=== PATIENT | female | born 1970 | race Two or more races ===

== ENCOUNTER → 2016-11-06 | Outpatient (CLI) | payer MEDICARE, OTHER ==
[~2016-11-06] MED LIST: ACID CONTROLLER20 MG GT; BISACODYL10 MG PR; DIASTAT2.5 MG PR; DONEPEZIL HCL10 MG GT; GABAPENTIN300 M2 GT; GENAPAP325 MG GT; LAMICTAL GT; MELATIN3 MG GT; MIRALAX17 GM GT; SYNTHROID75 MCG GT; XARELTO20 MG GT
--- NOTE | ~2016-11-06 | CT71 ---
[facility] A Service of [facility] RADIOLOGY TEXT RESULTS PATIENT: KIRSTEN HICKMAN LOCATION: CCAT : 68 UNIT #: [id number] AGE: [address]: NIDHI DE LA CRUZ APRN SEX: F ORDER DR: [id number] [facility] [address] [place], [place] [address] [id number] O MR#: [id number] Acc #: [id number] NAME: KIRSTEN HICKMAN : 1970 SEX: F STUDY DATE/TIME: 11/06/2016 9:11 UNIT: [facility]AT ROOM: STUDY DESCRIPTION: CT Head Wo Contrast Attending Physician: Nidhi De La Cruz Aprn Referring Physician: Oh Shah Sr., M.D. Ordering Physician: Nidhi De La Cruz Aprn Primary Care Physician: Babita Colin M.D. MEDICAL IMAGING REPORT This report is preliminary unless electronic signature is present EXAM CT of the head, 11/06/2016. HISTORY Jerks. Myoclonic jerks versus myoclonic seizure activity. TECHNIQUE CT of the head performed from skull base through vertex without intravenous contrast. This CT exam was performed with one or more of the following radiation dose reduction techniques: automatic exposure control, adjustment of mA and/or kV according to patient size, and iterative reconstruction. COMPARISONS 06/04/2015 FINDINGS Study degraded by extensive motion artifact despite repetition. No gross brain stem abnormality is seen. The cerebellum and cerebral hemispheres show overall preservation of burns matter-white matter differentiation, without clear indication of intracranial hemorrhage or acute cortical ischemia. Areas of hemorrhage or acute cortical ischemia could be obscured on multiple images by the extensive motion artifact. There are periventricular and deep white matter tract probable sequelae of chronic microvascular ischemia unchanged from prior study. The midline structures are nondisplaced. There is no clear indication of acute basal ganglia abnormality. The ventricles, cisterns and sulci show moderate generalized enlargement, consistent with moderate generalized atrophy disproportionate to patient's staged age. The intraorbital soft tissues are unremarkable. The visualized paranasal sinuses and mastoid air cells grossly clear. No acute-appearing bony abnormality. [facility] A Service of [facility] RADIOLOGY TEXT RESULTS PATIENT: KIRSTEN HICKMAN LOCATION: [facility] : [birth year] UNIT #: [id number] AGE: [address]: NIDHI DE LA CRUZ, POWDER GUARD SEX: F ORDER DR: IMPRESSION 1. Study markedly degraded by extensive motion artifact despite repetition. No acute abnormality is clearly seen. If the patient has ongoing neurologic symptoms, consider follow-up imaging, preferably with MRI, if the patient is a candidate. If clinically postprocessing for the patient and if this is a new onset of potential seizures in the patient, consider seizure protocol MRI. 2. Moderate generalized atrophy, disproportionate to patient's stated age. 3. No fracture. 4. Periventricular and deep white matter tract probable sequelae of chronic microvascular ischemia. Dictated by... Harley Presley M.D. THIS IS AN ELECTRONICALLY VERIFIED REPORT Harley Presley M.D. at 11/06/2016 8:00 PM SUDHAKAR/viv TD: 11/06/2016 17:30 JOB #: [id number] MEDICAL IMAGING REPORT Page 1 of 1 COPY
== END | disposition home or self-care (01) ==
LOC: CCAT 08:47
DX: G25.3 Myoclonus (principal); G31.9 Degenerative disease of nervous system, unspecified
CPT/HCPCS: 70450

== ENCOUNTER 2017-03-10 16:19 | Inpatient (IN) | payer MEDICARE, OTHER ==
[~2017-03-10] VITALS: Ht 157.5 cm; Wt 44.5 kg
--- NOTE | ~2017-03-10 | CR72 ---
[facility] A Service of [facility] RADIOLOGY TEXT RESULTS PATIENT: KIRSTEN HICKMAN LOCATION: [address] : [birth year] UNIT #: [id number] AGE: [address]: Zakiya Aguilar MD SEX: F ORDER DR: [id number] [facility] [address] [place], [place] [address] [id number] I MR#: [id number] Acc #: [id number] NAME: KIRSTEN HICKMAN : 1970 SEX: F STUDY DATE/TIME: 03/18/2017 4:52 UNIT: [facility] ROOM: [facility] STUDY DESCRIPTION: CR Chest Single View Portable Attending Physician: Zakiya Aguilar M.D. Ordering Physician: Catalino Woodard M.D. Primary Care Physician: Radha Emanuel Aprn MEDICAL IMAGING REPORT This report is preliminary unless electronic signature is present EXAM AP portable chest 03/18/2017 HISTORY Shortness of breath, symptoms began 03/11/2017. Left lower lobe pneumonia. Down syndrome. Mitral regurgitation. History of seizures. COMPARISON AP portable chest 03/17/2017. FINDINGS Diffuse interstitial and alveolar disease changes throughout both lungs do not appear significantly changed. ET tube tip projects approximately 1.2 cm above the arpita. Right arm approach PICC tip extends to the upper right atrial level. No visible pneumothorax or pleural effusion. IMPRESSION 1. Diffuse interstitial and alveolar disease changes in both lungs without significant change. Correlate clinically for pneumonia. 2. Supporting lines and tubes appear stable. Dictated by... Natalie Beavers M.D. THIS IS AN ELECTRONICALLY VERIFIED REPORT Natalie Beavers M.D. at 03/18/2017 9:49 PM [facility]/abad TD: 03/18/2017 06:31 JOB #: [id number] MEDICAL IMAGING REPORT [facility] A Service of [facility] RADIOLOGY TEXT RESULTS PATIENT: KIRSTEN HICKMAN [address] : [birth year] UNIT #: [id number] AGE: [address]: Zakiya Aguilar MD SEX: F ORDER DR: Page 1 of 1 COPY
--- NOTE | ~2017-03-10 | CR72 ---
[facility] A Service of [facility] RADIOLOGY TEXT RESULTS PATIENT: KIRSTEN HICKMAN LOCATION: [address]21 : [birth year] UNIT #: [id number] AGE: [address]: Zakiya Aguilar MD SEX: F ORDER DR: [id number] [facility] [address] [place], [place] [address] [id number] I MR#: [id number] Acc #: [id number] NAME: KIRSTEN HICKMAN : 1970 SEX: F STUDY DATE/TIME: 03/14/2017 9:24 UNIT: [facility] ROOM: [facility] STUDY DESCRIPTION: CR Chest Single View Portable Attending Physician: Zakiya Aguilar M.D. Ordering Physician: Zakiya Aguilar M.D. Primary Care Physician: Radha Emanuel Aprn MEDICAL IMAGING REPORT This report is preliminary unless electronic signature is present EXAM Portable chest INDICATIONS Endotracheal intubation. Comparison with earlier today. FINDINGS There has been interval placement of an endotracheal tube. The tip is in the right mainstem bronchus and needs to be retracted about 5 cm. There is increased atelectasis in the left lung base. There are diffuse bilateral pulmonary infiltrates, which are overall not significantly changed. Heart size stable. IMPRESSION 1. The endotracheal tube tip lies within the right mainstem bronchus and needs to be retracted about 5 cm. 2. Increased atelectasis within the left base. No other change. Findings were discussed with the patient's nurse at the time of dictation. Dictated by... Junior Ray M.D. THIS IS AN ELECTRONICALLY VERIFIED REPORT Junior Ray M.D. at 03/15/2017 7:27 AM ARS/parveen TD: 03/14/2017 20:29 JOB #: [id number] MEDICAL IMAGING REPORT Page 1 of 1 COPY
--- NOTE | ~2017-03-10 | CR72 ---
[facility] A Service [facility] RADIOLOGY TEXT RESULTS PATIENT: KIRSTEN HICKMAN LOCATION: [address] : [birth year] UNIT #: [id number] AGE: [address]: Zakiya Aguilar MD SEX: F ORDER DR: [id number] [address] [place], [place] [address] [id number] I MR#: [id number] Acc #: [id number] NAME: KIRSTEN HICKMAN : 1970 SEX: F STUDY DATE/TIME: 03/14/2017 8:18 UNIT: [facility] ROOM: [facility] STUDY DESCRIPTION: CR Chest Single View Portable Attending Physician: Zakiya Aguilar M.D. Ordering Physician: Elvis Wright M.D. Primary Care Physician: Radha Emanuel Aprn MEDICAL IMAGING REPORT This report is preliminary unless electronic signature is present EXAM Portable chest INDICATIONS Shortness of air. Cardiac arrest today. PROCEDURE Frontal view chest. COMPARISON 03/12/2017 FINDINGS Heart size is not significantly changed. Persistent diffuse alveolar opacity in both lungs slightly progressed. Probable small layering right effusion, no visible pneumothorax. IMPRESSION Interval progression of diffuse alveolar opacities in both lungs since 03/12/2017. Probably edema but diffuse pneumonia could have a similar appearance. Dictated by... Ruben Hughes M.D. THIS IS AN ELECTRONICALLY VERIFIED REPORT Ruben Hughes M.D. at 03/16/2017 5:01 PM EED/psc TD: 03/14/2017 20:04 JOB #: [id number] [facility] A Service [facility] RADIOLOGY TEXT RESULTS PATIENT: KIRSTEN HICKMAN LOCATION: [address] : [birth year] UNIT #: [id number] AGE: [address]: Zakiya Aguilar MD SEX: F ORDER DR: MEDICAL IMAGING REPORT Page 1 of 1 COPY
--- NOTE | ~2017-03-10 | CR72 ---
[facility] A Service of [facility] RADIOLOGY TEXT RESULTS PATIENT: KIRSTEN HICKMAN LOCATION: [address]21 : [birth year] UNIT #: [id number] AGE: [address]: Zakiya Aguilar MD SEX: F ORDER DR: [id number] [facility] [address] [place], [place] [address] [id number] I MR#: [id number] Acc #: [id number] NAME: KIRSTEN HICKMAN : 1970 SEX: F STUDY DATE/TIME: 03/20/2017 4:34 UNIT: [facility] ROOM: [facility] STUDY DESCRIPTION: CR Chest Single View Portable Attending Physician: Zakiya Aguilar M.D. Ordering Physician: Catalino Woodard M.D. Primary Care Physician: Radha Emanuel Aprn MEDICAL IMAGING REPORT This report is preliminary unless electronic signature is present EXAM AP portable chest 03/20/2017 HISTORY Shortness of air. Patient on ventilator. Follow up cardiopulmonary status. TECHNIQUE AP portable chest x-ray. FINDINGS The exam shows no significant change since yesterday. Mild diffuse patchy infiltrate throughout both lungs. Heart size normal. Endotracheal tube tip 1.1 cm above the arpita. Right arm PICC in good position. No visible pneumothorax or pleural effusion. IMPRESSION Stable portable chest radiograph, unchanged since yesterday. Dictated by... Bassam Diane M.D. THIS IS AN ELECTRONICALLY VERIFIED REPORT Bsasam Diane M.D. at 03/20/2017 9:59 PM STEVEN/abad TD: 03/20/2017 07:48 JOB #: [id number] MEDICAL IMAGING REPORT Page 1 of 1 COPY
--- NOTE | ~2017-03-10 | US84 ---
[id number] [facility] [address] [place], [place] [address] [id number] I MR#: [id number] Acc #: [id number] NAME: KIRSTEN HICKMAN : 1970 SEX: F STUDY DATE/TIME: 03/16/2017 15:35 UNIT: [facility] ROOM: [facility] STUDY DESCRIPTION: US LE Veins Complete [place] Stdy Attending Physician: Zakiya Aguilar M.D. Ordering Physician: Catalino Woodard M.D. Primary Care Physician: Radha Emanuel Aprn MEDICAL IMAGING REPORT This report is preliminary unless electronic signature is present EXAM Bilateral lower extremity venous duplex 03/16/2017 HISTORY Bilateral lower extremity edema since 03/11/2017 with shortness of breath. History of previous DVT. TECHNIQUE Venous ultrasound examination of both lower extremities was performed using grayscale, spectral Doppler and color flow Doppler imaging. FINDINGS The examination is negative. There is no evidence of deep venous thrombus from the groin to the lower calf bilaterally. Visualized greater saphenous veins are also patent. IMPRESSION Negative examination. No evidence of lower extremity deep venous thrombosis. Dictated by... Ector Arce M.D. THIS IS AN ELECTRONICALLY VERIFIED REPORT Ector Arce M.D. at 03/17/2017 7:36 AM KRT/sophia TD: 03/16/2017 18:20 JOB #: [id number] MEDICAL IMAGING REPORT Page 1 of 1 COPY
--- NOTE | ~2017-03-10 | EKG ---
PATIENT: KIRSTEN HICKMAN UNIT #: [id number] Ventricular Rate: 89 BPM Atrial Rate: 89 BPM P-R Interval: 124 ms QRS Duration: 86 ms Q-T Interval: 366 ms QTC Calculation(Bezet): 445 ms P [place]: 59 degrees Calculated R [place]: 37 degrees Calculated T [place]: 27 degrees Diagnosis Line: Normal sinus rhythm with sinus arrhythmia Diagnosis Line: Normal ECG Diagnosis Line: No previous ECGs available Diagnosis Line: Confirmed by KRISTI MARTIN MD ([id number]) on Diagnosis Line: 03/11/2017 12:33:54 AM INTERPRETING MD: MARIO BAH
--- NOTE | ~2017-03-10 | CR72 ---
[facility] A Service of [facility] & [facility] RADIOLOGY TEXT RESULTS PATIENT: KIRSTEN HICKMAN LOCATION: [address] : [birth year] UNIT #: [id number] AGE: [address]: Zakiya Aguilar MD SEX: F ORDER DR: [id number] [facility] [address] [place], [place] [address] [id number] I MR#: [id number] Acc #: [id number] NAME: KIRSTEN HICKMAN : 1970 SEX: F STUDY DATE/TIME: 03/17/2017 2:34 UNIT: [facility] ROOM: [facility] STUDY DESCRIPTION: CR Chest Single View Portable Attending Physician: Zakiya Aguilar M.D. Ordering Physician: Catalino Woodard M.D. Primary Care Physician: Radha Emanuel Aprn MEDICAL IMAGING REPORT This report is preliminary unless electronic signature is present EXAM AP portable chest. DATE 03/17/2017 HISTORY 47-year-old female with left lower lobe pneumonia and shortness breath. Symptoms began 03/11/2017. History of seizures, Down syndrome, mitral regurgitation. COMPARISON AP portable chest, 03/15/2017 at 03:31. FINDINGS ET tube tip projects 1.7 cm above the arpita. The right arm-approach PICC appears to have been advanced to the right atrial level. No pneumothorax is visible. Diffuse airspace disease changes throughout both lungs are again noted, may be slightly increased in the right base since the prior. No visible pneumothorax or pleural effusion. Normal heart size. IMPRESSION 1. Diffuse bilateral lung airspace disease. Correlate clinically for pneumonia. There may be slight increased airspace disease in the right base compared to 03/15/2017. 2. The right arm-approach PICC appears to have been advanced slightly to the level of the right atrium since the prior exam. Dictated by... Natalie Beavers M.D. THIS IS AN ELECTRONICALLY VERIFIED REPORT Natalie Beavers M.D. at 03/17/2017 9:55 PM [facility] A Service of [facility] & [facility] RADIOLOGY TEXT RESULTS PATIENT: KIRSTEN HICKMAN LOCATION: [facility] CICCU3-21 : [birth year] UNIT #: [id number] AGE: [address]: Zakiya Aguilar MD SEX: F ORDER DR: Rory TD: 03/17/2017 06:12 JOB #: [id number] MEDICAL IMAGING REPORT Page 1 of 1 COPY
--- NOTE | ~2017-03-10 | CR72 ---
[facility] A Service of [facility] RADIOLOGY TEXT RESULTS PATIENT: KIRSTEN HICKMAN LOCATION: C5B 548-01 : [birth year] UNIT #: [id number] AGE: [address]: Zakiya Aguilar MD SEX: F ORDER DR: [id number] [facility] [address] [place], [place] [address] [id number] I MR#: [id number] Acc #: [id number] NAME: KIRSTEN HICKMAN : 1970 SEX: F STUDY DATE/TIME: 03/10/2017 17:09 UNIT: [facility] ROOM: [id number] STUDY DESCRIPTION: CR Chest Single View Portable Attending Physician: Oh Garibay M.D. Ordering Physician: Steven Ewing M.D. Primary Care Physician: Radha Emanuel Aprn MEDICAL IMAGING REPORT This report is preliminary unless electronic signature is present EXAM Chest x-ray portable HISTORY Short of air cough and lethargy, starting today. COMMENT Single frontal portable view of the chest timed 17:09, 03/10/2017 reviewed. COMPARISON 07/17/2015 FINDINGS Heart size is normal. There is the interval development of airspace disease most confluent in the left lower lung. There is also probably increased vascular markings centrally and some interstitial edema centrally. Findings could be due to congestive failure with patchy pulmonary edema but the disease that is more focal in the left lower lobe and the lack of cardiac silhouette enlargement raises concern for aspiration or pneumonia. Followup to complete clearing recommended. Please correlate with clinical presentation. No pleural effusion or pneumothorax. IMPRESSION Abnormal appearance of the chest with development of an infiltrate in the left lower lobe as well as a component of increased vascular markings and interstitial markings centrally. The cardiac silhouette is not enlarged and there is no pleural effusion. Please correlate for clinical concern for mild congestive failure with patchy pulmonary edema versus left lower lobe aspiration or pneumonia. Followup to complete clearing is recommended and please correlate with clinical presentation. [facility] A Service of [facility] RADIOLOGY TEXT RESULTS PATIENT: KIRSTEN HICKMAN LOCATION: [facility] 548-01 : [birth year] UNIT #: [id number] AGE: [address]: Zakiya Aguilar MD SEX: F ORDER DR: Dictated by... Nelly Maxwell M.D. THIS IS AN ELECTRONICALLY VERIFIED REPORT Nelly Maxwell M.D. at 03/11/2017 10:44 AM SAC/to TD: 03/10/2017 19:30 JOB #: [id number] MEDICAL IMAGING REPORT Page 1 of 1 COPY
--- NOTE | ~2017-03-10 | HP ---
Unit #: [id number] #: [id number] Patient: KIRSTEN YOUNG [id number] [address] [address] [id number] I MR#: [id number] NAME: KIRSTEN YOUNG ROOM: 548 Age: 47 Sex: F Admission Date: 03/10/2017 : 1970 Attending Physician: Zakiya Aguilar M.D. Primary Care Physician: Radha Emanuel Aprn HISTORY AND PHYSICAL ADMISSION DIAGNOSES 1. Healthcare-acquired pneumonia. 2. History of seizure disorder. 3. History of DVT. 4. History of mental retardation and Down Syndrome. 5. Dementia. 6. Anxiety. HISTORY OF PRESENT ILLNESS Ms. Young is a 47-year-old female, resident of [place], who was brought to the ER secondary to respiratory distress and increased lethargy. Initial evaluation in the ER was suspicious for left lower lobe pneumonia along with the leukocytosis. The patient was started on broad spectrum antibiotics for healthcare-associated pneumonia (1) and admitted. There is no family member at the beside; therefore, my history is limited as well as not able to obtain any review of systems. PAST MEDICAL HISTORY Looks like significant for: 1. Down Syndrome. 2. Dementia. 3. Hypothyroidism. 4. GERD. 5. Immobility syndrome. 6. Anxiety. 7. DVT. 8. Lower extremity thrombophlebitis. 9. History of PE. 10. History of abnormal vaginal bleeding. PAST SURGICAL HISTORY Significant for PEG tube placement. SOCIAL HISTORY Resident of [place] with mental retardation. FAMILY HISTORY Unknown. MEDICATIONS Home medications include: 1. Donepezil. 2. Xarelto. 3. Pepcid. Unit #: [id number] #: [id number] Patient: KIRSTEN YOUNG 4. Melatonin. 5. MiraLAX. 6. Bisacodyl. 7. Synthroid. 8. Tylenol. 9. Diastat. ALLERGIES No known drug allergies. PHYSICAL EXAMINATION GENERAL: The patient is a lethargic, Down Syndrome, 47-year-old female in no acute distress. VITAL SIGNS: BP 131/84, heart rate 75, respirations 18, temperature 98. HEENT: Head is atraumatic. Pupils equal, round and reactive to light. Oropharynx clear. NECK: Supple. No masses, no JVD, no bruits. CHEST: Diminished bilaterally with some rhonchi. CARDIOVASCULAR: S1, S2, no murmurs. ABDOMEN: Soft, nondistended. Bowel sounds are present. EXTREMITIES: Lower extremities without any cyanosis, clubbing or edema. NEUROLOGICAL: Unobtainable. DIAGNOSTIC STUDIES IMAGING: Chest x-ray as above. LABORATORY: White count 13.5. Chemistry significant for K of 3.4 and blood glucose 134. Otherwise unremarkable. H and H 12.4 and 38.7. ASSESSMENT AND PLAN 1. HCAP: Continue IV antibiotic coverage, bronchodilators. Pulmonary to see. 2. History of seizure disorder: Continue home meds. 3. History of DVT, on Xarelto. 4. PE, same as above. 5. History of mental retardation and Down Syndrome. 6. Dementia, continue home meds. 7. History of anxiety. 8. GI and DVT prophylaxis: Continue Pepcid and Xarelto. Dictated by Mel Restrepo/wing TD: 03/12/2017 05:57 JOB #: [id number] Unit #: [id number] #: [id number] Patient: KIRSTEN YOUNG HISTORY AND PHYSICAL Page 1 of 1 X Luis Enrique West MD X HISTORY AND PHYSICAL
--- NOTE | ~2017-03-10 | CR72 ---
[facility] A Service of [facility] RADIOLOGY TEXT RESULTS PATIENT: KIRSTEN HICKMAN LOCATION: [address] : [birth year] UNIT #: [id number] AGE: [address]: Zakiya Aguilar MD SEX: F ORDER DR: [id number] [facility] [address] [place], [place] [address] [id number] I MR#: [id number] Acc #: [id number] NAME: KIRSTEN HICKMAN : 1970 SEX: F STUDY DATE/TIME: 03/18/2017 13:25 UNIT: [facility] ROOM: [facility] STUDY DESCRIPTION: CR Chest Single View Portable Attending Physician: Zakiya Aguilar M.D. Ordering Physician: Zakiya Aguilar M.D. Primary Care Physician: Radha Emanuel Aprn MEDICAL IMAGING REPORT This report is preliminary unless electronic signature is present EXAM Chest portable 03/18/2017 1325 hours CLINICAL HISTORY 47-year-old woman with shortness of air for 1 day. Endotracheal tube present. COMPARISON 03/18/2017 0452 hours. FINDINGS Portable upright film demonstrates the patient to be rotated and leaning to the right. The endotracheal tube tip is within 1 cm of the arpita. Right PICC line tip is in the SVC. There is diffuse bilateral mixed interstitial and airspace change which is stable. There is some lucency along the left heart border which I believe is due to motion. No definite pneumothorax is seen. IMPRESSION 1. The endotracheal tube tip is within 1 cm of the aprita. 2. Patient is rotated. Diffuse bilateral parenchymal changes in the lungs persist. Dictated by... Andie Lopez M.D. THIS IS AN ELECTRONICALLY VERIFIED REPORT Andie Lopez M.D. at 03/18/2017 5:41 PM Romy TD: 03/18/2017 15:52 [facility] A Service [facility] RADIOLOGY TEXT RESULTS PATIENT: KIRSTEN HICKMAN LOCATION: [facility] CICCU3-21 : [birth year] UNIT #: [id number] AGE: [address]: Zakiya Aguilar MD SEX: F ORDER DR: JOB #: [id number] MEDICAL IMAGING REPORT Page 1 of 1 COPY
--- NOTE | ~2017-03-10 | CR72 ---
[facility] A Service of [facility] RADIOLOGY TEXT RESULTS PATIENT: KIRSTEN HICKMAN LOCATION: [address]21 : [birth year] UNIT #: [id number] AGE: [address]: Zakiya Aguilar MD SEX: F ORDER DR: [id number] [facility] [address] [place], [place] [address] [id number] I MR#: [id number] Acc #: [id number] NAME: KIRSTEN HICKMAN : 1970 SEX: F STUDY DATE/TIME: 03/21/2017 6:23 UNIT: [facility] ROOM: [facility] STUDY DESCRIPTION: CR Chest Single View Portable Attending Physician: Zakiya Aguilar M.D. Ordering Physician: Catalino Woodard M.D. Primary Care Physician: Radha Emanuel Aprn MEDICAL IMAGING REPORT This report is preliminary unless electronic signature is present EXAM Portable chest INDICATION Shortness of air today. PROCEDURE Frontal view chest. COMPARISON 03/20/2017. FINDINGS ET tube unchanged positioned just at the arpita. Heart size is stable. Mild reticulonodular prominence in both lungs is unchanged. No new dense consolidation. No visible pneumothorax. IMPRESSION Stable. Dictated by... Ruben Hughes M.D. THIS IS AN ELECTRONICALLY VERIFIED REPORT Ruben Hughes M.D. at 03/22/2017 8:16 AM JUNG/abad TD: 03/21/2017 07:41 JOB #: [id number] MEDICAL IMAGING REPORT Page 1 of 1 COPY
--- NOTE | ~2017-03-10 | CO ---
Unit #: [id number] #: [id number] Patient: KIRSTEN YOUNG [id number] [address] [address] [id number] I MR#: [id number] NAME: KIRSTEN YOUNG ROOM: CIC3 Age: 47 Sex: F Admission Date: 03/11/2017 : 1970 Attending Physician: Zakiya Aguilar M.D. Primary Care Physician: Radha Emanuel Aprn Consultation Date: 03/14/2017 CONSULTATION REPORT REASON FOR CONSULTATION Malfunctioning PEG tube. HISTORY Ms. Young is a 47-year-old white female. The patient is in the Intensive Care Unit as a result of her respiratory distress and left lower lobe pneumonia and leukocytosis. She has a malfunctioning PEG tube. It is unclear whether the PEG tube is intragastric or has migrated outside. The patient is, therefore, not getting any PEG feeds at the moment. PAST MEDICAL HISTORY Significant for: 1. History of dementia and Down Syndrome. 2. Hypothyroidism. 3. Immobility syndrome. 4. Anxiety. 5. She also has a previous history of pulmonary embolism and lower extremity thrombophlebitis and DVTs. PREVIOUS SURGERIES Significant for PEG placement. SOCIAL HISTORY The patient is a resident of [facility]. Doesn't smoke or drink alcohol. MEDICATIONS Medications at home and [facility] included: 1. Donepezil. 2. Xarelto. 3. Pepcid. 4. Melatonin. 5. MiraLAX. 6. Bisacodyl. 7. Synthroid. 8. Tylenol. 9. Diastat. ALLERGIES No known drug allergies. REVIEW OF SYSTEMS A detailed review of organ systems is not possible with the patient's mental status. Unit #: [id number] #: [id number] Patient: KIRSTEN YOUNG PHYSICAL EXAMINATION GENERAL APPEARANCE: She appears somewhat lethargic and breathing spontaneously. VITAL SIGNS: Her vital signs indicate a temperature of 99.1, pulse 69 per minute and regular, respiratory rate 17, blood pressure 106/54. She has mild pallor, there being no icterus, lymphadenopathy or peripheral edema. CARDIOVASCULAR EXAMINATION: Normal heart sounds. No murmurs. LUNGS: Auscultation of the lungs reveals normal breath sounds. Good air entry. ABDOMEN: Soft, nontender. Liver and spleen are not palpable. Bowel sounds normal. Careful (1) and inspection of the PEG tube, which seems like a replacement PEG tube, but I was unable to remove the PEG tube after deflation of balloon which means the bulb is lodged in the duodenum and cannot be pulled out and it also cannot be emptied. CLINICAL IMPRESSION AND PLAN Patient with a history of Down Syndrome and aspiration pneumonia, now in the Intensive Care Unit because of respiratory distress. She does need replacement of the PEG tube done endoscopically tomorrow and a new 20-Vietnamese PEG tube will be placed. The pros and cons of the procedure and potential risks and complications will be discussed with the patient's family. Thank you very much for asking me to see this pleasant patient. I appreciate the consult. Dictated by... Mel Miller TD: 03/15/2017 10:31 JOB #: [id number] CC: Oh Shah Sr., M.D. CONSULTATION REPORT Page 1 of 1 X Valeriy Olivares MD X CONSULTATION REPORT
--- NOTE | ~2017-03-10 | DS ---
Unit #: [id number] #: [id number] Patient: KIRSTEN YOUNG [id number] [address] [place], [place] [address] [id number] I MR#: [id number] NAME: KIRSTEN YOUNG ROOM: 564 Age: 47 Sex: F Admission Date: 03/11/2017 : 1970 Discharge Date: 03/24/2017 Attending Physician: Zakiya Aguilar M.D. Primary Care Physician: Radha Emanuel Aprn DISCHARGE SUMMARY CONSULTANTS 1. Dr. Woodard and Dr. Wright from pulmonary services. 2. Dr. Lovelace from infectious disease services. LAB WORKUP ON DISCHARGE CBC showed WBC 10.0, hemoglobin 10.1, hematocrit 30.3 and platelet count of 334, glucose 92. Sodium 137, potassium 4.0. chloride 102, BUN 19, creatinine 0.7, calcium 8.2. SIGNIFICANT RADIOLOGICAL STUDIES DURING HOSPITALIZATION 1. The patient had multiple chest x-rays and from her x-rays during hospitalization. 2. The patient also had bilateral lower extremity ultrasound which was negative for DVT. Most recent chest x-ray, which was done on 03/22/2017, shows stable cardiopulmonary finding. 3. Most recent abdominal x-ray showed nonobstructive bowel gas pattern. PROCEDURE PERFORMED DURING HOSPITALIZATION Removal of PEG tube and replaced with a new [address] Olivares. This procedure was performed on 03/15/2017 team. The patient does have a long segment of Velasco's esophagus as noted on EGD by Dr. Olivares. DISCHARGE DIAGNOSES 1. Acute hypoxic respiratory failure. 2. Aspiration. 3. Pneumonia. 4. Extended spectrum beta lactamase, Escherichia coli. 5. Urinary tract infection. 6. History of seizure disorder. 7. History of DVT in the past. We had ultrasound done in the hospital and showed negative DVT. 8. History of Down syndrome. 9. History of hypothyroidism. 10. Immobility syndrome. DISCHARGE MEDICATIONS 1. Diastat 5 mg per rectum p.r.n. for seizures. 2. Bisacodyl 10 mg q.o.d. p.r.n. for constipation. 3. MiraLAX 1 packet daily. 4. Donepezil, which is Aricept 10 mg daily. 5. Famotidine 20 mg q.12. 6. Melatonin 3 mg at bedtime. 7. Levothyroxine 75 mcg daily. 8. Mini-neb treatment with albuterol and Atrovent q.i.d. Unit #: [id number] #: [id number] Patient: KIRSTEN YOUNG 9. Prednisone 20 mg through PEG tube until 03/27/2017 and then decrease the dose to 10 mg until 04/01/2017. 10. Tylenol 650 q.6 p.r.n. 11. Neurontin 200 mg in the morning and 300 mg at night. 12. Lamictal 100 mg twice a day. 13. Please note, patient was on Xarelto at [facility], will leave that decision to primary care provider. HOSPITAL COURSE Ms. Kirsten Young is a 47-year-old female who was admitted by my colleague, Dr. Luis Enrique West, was brought to ER secondary to respiratory distress and increased lethargy. Patient was diagnosed with left lower lobe pneumonia, along with leukocytosis. Dr. Woodard from pulmonary services were consulted. The patient was started on broad spectrum IV antibiotics. Patient was also found to have UTI and infectious disease was consulted. Patient has completed the course of IV antibiotics. Patient received vancomycin, Zosyn and tobramycin for healthcare associated pneumonia. Tobramycin was sensitive to E. coli ESBL. Patient is doing much better. Please note, patient did have malfunctioning G-tube. Dr. Valeriy Olivares was consulted and PEG tube has been replaced. Patient is doing well from a feeding point of view and is able to tolerate feeds. Patient did have acute hypoxic respiratory failure during hospitalization, was intubated, but she has done well after extubation, is stable. Patient is being discharged home on tapering dose of steroids. I have called patient's daughter to let her know that patient will be discharged today. EXAMINATION ON DISCHARGE VITAL SIGNS: Blood pressure is 113/87, respiratory rate 20, pulse is 115, temperature 98.0, oxygen saturation is 93%. HEENT: Head is normocephalic. CHEST: Fair air entry decreased at the bases. CARDIOVASCULAR: Regular rhythm. ABDOMEN: Soft. PEG is in place. DISCHARGE INSTRUCTION 1. Patient is being discharged to [facility] if okay with pulmonary and infectious disease. 2. Medications: As per med rec. 3. Followup with Dr. Shahid Wright in one week. 4. Continue oxygen to keep saturation above 95%. Dictated by... Mel Pollack/armando TD: 03/24/2017 12:29 JOB #: [id number] Unit #: [id number] #: [id number] Patient: KIRSTEN YOUNG DISCHARGE SUMMARY Page 1 of 1 X Zakiya Aguilar MD X DISCHARGE SUMMARY
--- NOTE | ~2017-03-10 | CR72 ---
[facility] A Service of [facility] RADIOLOGY TEXT RESULTS PATIENT: KIRSTEN HICKMAN [facility] : [birth year] UNIT #: [id number] AGE: [address]: Zakiya Aguilar MD SEX: F ORDER DR: [id number] [facility] [address] [facility] [place], [place] [address] [id number] I MR#: [id number] Acc #: [id number] NAME: KIRSTEN HICKMAN : 1970 SEX: F STUDY DATE/TIME: 03/22/2017 2:20 UNIT: [facility] ROOM: [facility] STUDY DESCRIPTION: CR Chest Single View Portable Attending Physician: Zakiya Aguilar M.D. Ordering Physician: Catalino Woodard M.D. Primary Care Physician: Radha Emanuel Aprn MEDICAL IMAGING REPORT This report is preliminary unless electronic signature is present EXAM Chest x-ray, 03/22/2017 HISTORY Respiratory failure. Patient on ventilator. Followup cardiopulmonary status and support equipment position. TECHNIQUE AP portable chest x-ray. FINDINGS Repositioned endotracheal tube tip is in good position in the mid thoracic trachea about 3.8 cm above the arpita. Right arm PICC has migrated across the midline with the tip now present in the left subclavian vein. The exam is otherwise unchanged. Diffuse interstitial opacity likely representing mild interstitial edema or infiltrate. No dense airspace consolidation or pleural effusion. Heart size normal. IMPRESSION 1. Stable cardiopulmonary findings since yesterday. 2. ETT in good position. 3. Migration of the right arm PICC into the left subclavian vein as noted above. Dictated by... Bassam Diane M.D. THIS IS AN ELECTRONICALLY VERIFIED REPORT Bassam Diane M.D. at 03/22/2017 6:08 AM JINW/merly [facility] A Service of [facility] RADIOLOGY TEXT RESULTS PATIENT: KIRSTEN HICKMAN [facility] : [birth year] UNIT #: [id number] AGE: [address]: Zakiya Aguilar MD SEX: F ORDER DR: TD: 03/22/2017 03:47 JOB #: [id number] MEDICAL IMAGING REPORT Page 1 of 1 COPY
--- NOTE | ~2017-03-10 | CO ---
Unit #: [id number] #: [id number] Patient: KIRSTEN YOUNG [id number] [address] [place], [place] [address] [id number] I MR#: [id number] NAME: KIRSTEN YOUNG ROOM: 548 Age: 47 Sex: F Admission Date: 03/11/2017 : 1970 Attending Physician: Zakiya Aguilar M.D. Primary Care Physician: Radha Emanuel Aprn Requesting Physician: Luis Enrique West M.D. CONSULTATION REPORT REASON FOR CONSULTATION ESBL e-coli urinary tract infection. HISTORY OF PRESENT ILLNESS Much of the information was obtained from the chart and discussion with the correctional case manager from [place], who was present at the bedside. Ms. Young is a 47-year-old female who has a history of seizure disorder, history of DVT, mental retardation and Down syndrome, dementia and anxiety. She was brought from [place] due to increased respiratory distress and increased lethargy. Chest x-ray showed transcending for a left lower lobe pneumonia. Urine culture was also positive for ESBL e-coli. The patient is currently being treated for possible healthcare associated pneumonia and is on vancomycin and Zosyn as well as tobramycin. In discussion with the correctional case manager from [place], she reports that Ms. Young has been over the last few weeks having increased lethargy and sleepiness. Usually she is more alert. She is alert and talkative, although difficult to understand and yelling. While at [place] they had been adjusting her Lamictal dose because they were concerned of some myoclonic activity that they were seeing and were changing around her medications. She reports that she did not have any fevers, reported some low-grade temperature at 99. No other complaints. We are now being consulted for positive urine culture. PAST MEDICAL HISTORY 1. Down syndrome. 2. Dementia. 3. Hypothyroidism. 4. Gastroesophageal reflux disease. 5. Immobility syndrome. 6. Anxiety. 7. DVT. 8. Left lower extremity thrombophlebitis. 9. History of PE. 10. Abnormal vaginal bleeding. PAST SURGICAL HISTORY PEG tube placement. SOCIAL HISTORY She is a resident of [place]. FAMILY HISTORY Unknown. Unit #: [id number] #: [id number] Patient: KIRSTEN YOUNG ALLERGIES No known drug allergies. REVIEW OF SYSTEMS Unable to be obtained. PHYSICAL EXAMINATION GENERAL: The patient is lying in bed, lethargic and difficult to arouse. No apparent distress. VITALS: Temperature 98.1, some low grade temperature of 99 noted, heart rate 101, respirations 20, blood pressure 138/68. HEENT: Normocephalic. Pupils equally round and reactive to light and accommodation. NECK: Supple. CHEST: Clear to auscultation. Nonlabored. No abnormal breath sounds heard. HEART: Regular rate. ABDOMEN: Soft, nondistended, nontender. EXTREMITIES: Trace edema. DIAGNOSTIC STUDIES IMAGING: Chest x-ray with abnormal appearance of the chest with development of infiltrate in the left lower lobe, as well as increased vascular markings and interstitial markings centrally, concerning for left lower lobe aspiration or pneumonia. LABORATORY: Chemistry, BUN 8, creatinine 0.7, sodium 144, potassium 3.5, AST 21, ALT 21. White blood cell count 13.6 and previously 13.5, platelets 251, hemoglobin 14.1. Blood cultures are 2 of 2 no growth at 24 hours. Urine culture with ESBL e-coli. Urinalysis with numerous white blood cells, 4+ bacteria, 3+ leukocytes, positive nitrites and trace protein. Procalcitonin less than 0.05. Lactic acid 1.3. ASSESSMENT 1. Possible healthcare associated pneumonia. 2. Possible ESBL e-coli urinary tract infection. 3. History of seizure disorder. PLAN Will continue vancomycin, Zosyn and tobramycin at this time to cover for healthcare associated pneumonia as well as urinary tract infection. Discussed with the microbiology lab and tobramycin is sensitive to e-coli ESBL. Will need to monitor creatinine level closely while on antibiotics. Unsure how urine and culture were obtained on initial. At this time will ask for a straight cath urinalysis and culture to be repeated. The patient is afebrile and procalcitonin unremarkable. Discussed with the nursing staff to please notify admitting for concern for possible seizure type-like activity. During exam the patient was noted to have some right shoulder possible myoclonic jerking. Would recommend neurology workup. At this time the patient is currently stable. Will continue current antibiotics, follow blood cultures and labs and monitor temperature. Will discuss plan with [place]. Thank you for this consultation. M.D. to follow for any further recommendations. Dictated by... Unit #: [id number] #: [id number] Patient: KIRSTEN YOUNG APRN DT/omid TD: 03/12/2017 11:00 JOB #: [id number] CONSULTATION REPORT Page 1 of 1 X X CONSULTATION REPORT
--- NOTE | ~2017-03-10 | CR7 ---
[facility] A Service of [facility] RADIOLOGY TEXT RESULTS PATIENT: KIRSTEN HICKMAN LOCATION: [facility] 54- : [birth year] UNIT #: [id number] AGE: [address]: Zakiya Aguilar MD SEX: F ORDER DR: [id number] [facility] [address] [place], [place] [address] [id number] I MR#: [id number] Acc #: [id number] NAME: KIRSTEN HICKMAN : 1970 SEX: F STUDY DATE/TIME: 03/11/2017 17:15 UNIT: [facility] ROOM: [facility] STUDY DESCRIPTION: CR Abdomen Single AP View Attending Physician: Zakiya Aguilar M.D. Ordering Physician: Luis Enrique West M.D. Primary Care Physician: Radha Emanuel Aprn MEDICAL IMAGING REPORT This report is preliminary unless electronic signature is present EXAM Single view abdomen INDICATIONS Shortness of air. Abdominal bloating and abdominal distension. COMPARISON STUDIES AP radiograph of the abdomen compared to 07/17/2015. FINDINGS The bowel gas pattern is nonobstructive. There is a gastrostomy tube in the left upper quadrant. No radiopaque foreign body. IMPRESSION Gastrostomy tube in left upper quadrant. Nonobstructive bowel gas pattern. Dictated by... Anshu Carpenter M.D. THIS IS AN ELECTRONICALLY VERIFIED REPORT Anshu Carpenter M.D. at 03/11/2017 9:33 PM JAMEEL/rosalie TD: 03/11/2017 20:35 JOB #: [id number] MEDICAL IMAGING REPORT Page 1 of 1 COPY
--- NOTE | ~2017-03-10 | CR6 ---
[facility] A Service of [facility] RADIOLOGY TEXT RESULTS PATIENT: KIRSTEN HICKMAN LOCATION: [facility] 548-01 : [birth year] UNIT #: [id number] AGE: [address]: Zakiya Aguilar MD SEX: F ORDER DR: [id number] [facility] [address] [facility]. [place], [place] [address] [id number] I MR#: [id number] Acc #: [id number] NAME: KIRSTEN HICKMAN : 1970 SEX: F STUDY DATE/TIME: 03/13/2017 15:56 UNIT: [facility] ROOM: [facility] STUDY DESCRIPTION: CR Abdomen Portable Sng View Attending Physician: Zakiya Aguilar M.D. Ordering Physician: Zakiya Aguilar M.D. Primary Care Physician: Radha Emanuel Aprn MEDICAL IMAGING REPORT This report is preliminary unless electronic signature is present EXAM Frontal abdomen, 03/13/2017. INDICATIONS PEG tube placement. TECHNIQUE Frontal abdomen compared with 1556 hours. FINDINGS There has been interval transit of oral contrast material into more distal aspects of the small bowel. Previously described radiopaque density resembling a screw projecting over the right upper quadrant no longer identified. It was probably external to the patient. Persistent amorphous densities projecting over the gastric fundus. This remains nonspecific and may represent contrast contamination of the patient's skin or clothing and should be correlated clinically. Additional hign attenuation densities projecting over the right lower quadrant and left lower quadrant are nonspecific and may represent external artifact as well but should be correlated clinically. Gaseous distension of bowel similar to the prior study. IMPRESSION 1. The second image demonstrates that the previously described radiopaque density resembling the screw is no longer present and was probably external to the patient. 2. Interval transit of oral contrast material into more distal small bowel loops. 3. Redemonstration of amorphous densities projecting over the left upper quadrant presumably representing contrast artifact on the patient's skin or clothing. Additional new areas of probable contrast [facility] A Service [facility] RADIOLOGY TEXT RESULTS PATIENT: KIRSTEN HICKMAN LOCATION: B 548-01 : [birth year] UNIT #: [id number] AGE: [address]: Zakiya Aguilar MD SEX: F ORDER DR: contamination on the skin or clothing inferiorly. This should be correlated with physical exam. Findings were discussed with the patient's nurse in connection with the initial read on the case. STAT * RESULT Dictated by... Vikas Rahman M.D. THIS IS AN ELECTRONICALLY VERIFIED REPORT Vikas Rahman M.D. at 03/13/2017 8:12 PM MECCA/roxanne TD: 03/13/2017 17:44 JOB #: [id number] MEDICAL IMAGING REPORT Page 1 of 1 COPY
--- NOTE | ~2017-03-10 | CR72 ---
[facility] A Service of [facility] RADIOLOGY TEXT RESULTS PATIENT: KIRSTEN HICKMAN LOCATION: [address] : [birth year] UNIT #: [id number] AGE: [address]: Zakiya Aguilar MD SEX: F ORDER DR: [id number] [facility] [address]. [place], [place] [address] [id number] I MR#: [id number] Acc #: [id number] NAME: KIRSTEN HICKMAN : 1970 SEX: F STUDY DATE/TIME: 03/14/2017 10:09 UNIT: [facility] ROOM: [facility] STUDY DESCRIPTION: CR Chest Single View Portable Attending Physician: Zakiya Aguilar M.D. Ordering Physician: Giovani De La Fuente M.D. Primary Care Physician: Radha Emanuel Aprn MEDICAL IMAGING REPORT This report is preliminary unless electronic signature is present EXAM Portable chest. INDICATIONS Respiratory failure. PROCEDURE Frontal view of the chest. COMPARISON 03/14/2017 FINDINGS ET tube has been repositioned now 2.6 cm above the arpita. Persistent bilateral diffuse opacity. No visible pneumothorax. IMPRESSION Repositioning of the ET tube now 2.6 cm above the arpita. Otherwise stable. Dictated by... Ruben Hughes M.D. THIS IS AN ELECTRONICALLY VERIFIED REPORT Ruben Hughes M.D. at 03/16/2017 5:01 PM JUNG/roxanne TD: 03/14/2017 20:39 JOB #: [id number] MEDICAL IMAGING REPORT Page 1 of 1 COPY
--- NOTE | ~2017-03-10 | CR72 ---
[facility] A Service of [facility] RADIOLOGY TEXT RESULTS PATIENT: KIRSTEN HICKMAN LOCATION: [facility] 54- : [birth year] UNIT #: [id number] AGE: [address]: Zakiya Aguilar MD SEX: F ORDER DR: [id number] [facility] [address] [facility]. [place], [place] [address] [id number] I MR#: [id number] Acc #: [id number] NAME: KIRSTEN HICKMAN : 1970 SEX: F STUDY DATE/TIME: 03/12/2017 13:46 UNIT: [facility] ROOM: [facility] STUDY DESCRIPTION: CR Chest Single View Portable Attending Physician: Zakiya Aguilar M.D. Ordering Physician: Catalino Woodard M.D. Primary Care Physician: Radha Emanuel Aprn MEDICAL IMAGING REPORT This report is preliminary unless electronic signature is present EXAM Portable chest x-ray 03/12/2017 HISTORY Evaluate pneumonia. Cough, weakness beginning 03/10. AP right anterior oblique view of the chest is presented. Comparison 03/10/2017. The lungs are moderately well inflated. There is a marked worsening in the appearance of the lungs. Extensive airspace disease extending from the central lung zones toward the periphery bilaterally. The airspace disease on the right appears new. It is markedly increased on the left now involving upper and lower lobes. On prior examination there was only a left basilar airspace disease. In addition the heart is more prominent than on the prior study. In the appropriate clinical context, the appearance of the lungs could be a reflection of cardiac decompensation and moderate to severe pulmonary edema. Alternatively, multifocal moderate to severe and worsening bilateral pneumonia could be considered. Weight should be given clinical assessment. Continued followup to resolution recommended. No definite pleural effusion and no pneumothorax. No acute-appearing bony abnormality. Dictated by... Harley Presley M.D. THIS IS AN ELECTRONICALLY VERIFIED REPORT Harley Presley M.D. at 03/12/2017 10:46 PM VICKEYK/rosalie [facility] A Service of [facility] RADIOLOGY TEXT RESULTS PATIENT: KIRSTEN HICKMAN LOCATION: [facility] 548-01 : [birth year] UNIT #: [id number] AGE: [address]: Zaikya Aguilar MD SEX: F ORDER DR: TD: 03/12/2017 20:59 JOB #: [id number] MEDICAL IMAGING REPORT Page 1 of 1 COPY
--- NOTE | ~2017-03-10 | A ---
[facility] Nutrition Therapy DATE: 03/13/17 Patient: KIRSTEN HICKMAN Physician: MIKAYLA Address: [facility] Room/Bed: [address] [place] [address], Zip: [place] [address] Admit Date: 03/11/17 Date of : 68 Height: 5 2 Weight: 132 60 NUTRITIONAL ASSESSMENT: REASON: CONSULT- "START TUBE FEEDS" PATIENT ADMITTED FOR SOA, PNA, AND E.COLI PMH: DOWN SYNDROME, DEMENTIA, GERD, HYPOTHYROIDISM, NON-VERBAL, MR, SEIZURE DISORDER, IMMOBILITY SYNDROME Anthropometrics: HT: 62', WT: 132#, BMI: 24.1 Labs: 03/13/17- K: 3.0, ALB: 3.1, ALL OTHER NUTRITION LABS WNL Meds: MAG SULFATE, KCL, NACL, VANCOMYCIN, MIRALAX, MELATONIN, NEURONTIN I/O & Bowel function: 2309/10 LBM: 03/10/17 Skin Integrity: INTACT Estimated Nutrition Needs: KCAL: 1500-1800KCAL (25-30KCAL/KG) PROTEIN: 48-60GM (0.8-1.0GM/KG) FLUID: 1ML/KG OR PER MD Assessment: PATIENT IS A 47 Y/O FEMALE ADMITTED FOR SOA, PNA, AND E.COLI. PATIENT IS A RESIDENT AT [employer] AND HAD A PEG TUBE PLACED IN AUG 2016. PATIENT IS NON-VERBAL, HAS DEMENTIA, AND ALSO HAS IMMOBILITY SYNDROME. PATIENT IS NOT APPROPRIATE FOR INTERVIEW ATT. THIS RD SPOKE WITH [facility] NURSING STAFF FOR PATIENT'S NUTRITION NEEDS. AT [facility] PATIENT IS ON A PUREED DIET WITH HONEY THICKENED LIQUIDS. SHE DOES NOT RECEIVE ANY CONTINUOUS ENTERAL NUTRITION. IF PATIENT REFUSES HER MEAL STAFF WILL ADMINISTER 1 CAN OF JEVITY 1.5 (237ML). [facility]ERSON NURSING ALSO STATED THAT PATIENT WAS GAINING A SIGNIFICANT AMOUNT OF WEIGHT WHEN SHE WAS ON CONTINUOUS EN, BUT HAS SINCE STABILIZED ON HER CURRENT DIET REGIMEN. THERE ARE NO SKIN ISSUES NOTED ATT. PATIENT DOES HAVE AN INCREASED RISK FOR SKIN BREAKDOWN D/T BOWEL AND BLADDER INCONTINENCE. SHE IS CURRENTLY ON A HEART HEALTHY, PUREED DIET WITH HONEY THICKENED LIQUIDS. PLEASE SEE RECOMMENDATIONS BELOW Dx: ALTERED NUTRIENT NEEDS D/T CURRENT CONDITIONS AEB NEED FOR MECHANICALLY ALTERED DIET, BOLUS FEEDS Intervention: 1. PUREED DIET, HONEY THICK LIQUIDS, JEVIETY 1.5, MEDS/FLUIDS PER MD Monitoring, Evaluation and Goals: [facility] Nutrition Therapy DATE: 03/13/17 Patient: KIRSTEN ZHOUINE Physician: MIKAYLA Address: [facility] Room/Bed: [address] [place] [address], Zip: [place] [address] Admit Date: 03/11/17 Date of : [birth year] Height: 5 2 Weight: 132 60 1. ADEQUATE PO INTAKES >50% OF MEALS 2. PREVENT, CORRECT MICRO/MACRO NUTRIENT DEFICIENCIES 3. WEIGHT; MAINTAIN CURRENT WEIGHT, PREVENT WEIGHT LOSS MONITOR: LABS, I/Os, WEIGHTS Recommendations: 1. CONTINUE PUREED, HONEY THICKENED LIQUIDS PER ASTROPHYSICS PROFESSOR RECOMMENDATIONS. RECOMMEND TO LIBERALIZE THERAPEUTIC DIET TO REGULAR TO ENCOURAGE INCREASED PO INTAKES. 2. IF PATIENT REFUSES MEAL, BOLUS 1 CAN JEVITY 1.5. THIS PROVIDES 356 KCALS/CAN. FLUSH 200ML WATER FOLLOWING BOLUS, OR PER MD ORDERS. 3. MONITOR WEIGHT Q 3 DAYS TO ENSURE PATIENT IS RECEIVING ADEQUATE NUTRIENT INTAKE. 4. WILL CONTINUE TO MONITOR PO INTAKES AND WEIGHT RD TO F/U PER PROTOCOL AND PRN R/T PATIENT MODERATELY COMPROMISED Respectfully, PEPE KIRKPATRICK, RD, LD Food and Nutritional Services [facility] cc: client file
--- NOTE | ~2017-03-10 | CR72 ---
[facility] A Service of [facility] RADIOLOGY TEXT RESULTS PATIENT: KIRSTEN HICKMAN LOCATION: [facility] : [birth year] UNIT #: [id number] AGE: [address]: Zakiya Aguilar MD SEX: F ORDER DR: [id number] [facility] [address] [place], [place] [address] [id number] I MR#: [id number] Acc #: [id number] NAME: KIRSTEN HICKMAN : 1970 SEX: F STUDY DATE/TIME: 03/15/2017 3:37 UNIT: [facility] ROOM: [facility] STUDY DESCRIPTION: CR Chest Single View Portable Attending Physician: Zakiya Aguilar M.D. Ordering Physician: Elvis Wright M.D. Primary Care Physician: Radha Emanuel Aprn MEDICAL IMAGING REPORT This report is preliminary unless electronic signature is present EXAM AP portable chest. DATE 03/15/2017 HISTORY Respiratory failure today with endotracheal tube placement. Symptoms present since 03/14/2017. COMPARISON AP portable chest, 03/14/2017. FINDINGS ET tube tip projects about 1.6 cm above the arpita. Right arm approach PICC tip extends into the [id number] SVC. Diffuse interstitial and alveolar disease changes in both lungs are present, but the aeration in both lungs appears improved since 1 day prior. No definite pneumothorax or pleural effusion is seen. IMPRESSION 1. Diffuse interstitial and alveolar disease changes throughout both lungs with improved aeration bilaterally since 03/14/2017. 2. ET tube tip 1.6 cm above the arpita. Dictated by... Natalie Beavers M.D. THIS IS AN ELECTRONICALLY VERIFIED REPORT Natalie Beavers M.D. at 03/15/2017 9:59 PM [facility]/tmw [facility] A Service of [facility] RADIOLOGY TEXT RESULTS PATIENT: KIRSTEN HICKMAN LOCATION: [facility] : [birth year] UNIT #: [id number] AGE: [address]: Zakiya Aguilar MD SEX: F ORDER DR: TD: 03/15/2017 11:47 JOB #: [id number] MEDICAL IMAGING REPORT Page 1 of 1 COPY
--- NOTE | ~2017-03-10 | FU ---
[facility] Nutrition Therapy DATE: 03/23/17 Patient: KIRSTEN HICKMAN Physician: MKIAYLA Address: [facility] Room/Bed: [address], Zip: [place] [address] Admit Date: 03/11/17 Date of : [birth year] Height: 5 2 Weight: 100 45.5 NUTRITION MONITORING/FOLLOW-UP: Reason: Enteral nutrition follow-up Anthropometrics: current wt: 45.5 kg (wt ranges 43.5-60.5 kg since admission) 03/22 Labs: glucose 139, POC 97-103, lytes WNL Meds: synthroid (PEG), pepcid, mg, k GI: diarrhea 03/23 per FMS Skin: redness/blanching coccyx, no edema Estimated Nutrition Needs: 2721-3597 kcals/day 72-91 g protein/day Assessment: Chart reviewed, events noted. Patient extubated yesterday 03/22 to 2L nasal cannula, no longer on any pressors. Good UOP. EN running with Jevity 1.5 @ goal rate of 60 ml/hr per PEG, increased FW flushes to 300 ml q 6 hours per nursing. Nursing also states the pt continues to tolerate EN well with no residuals. Diarrhea noted per FMS. Of note, RD confirmed yesterday pt's feeds are being held 2 hrs before and after synthroid, however pt received 1461 ml EN past 24 hours (goal is 1200 ml/day; 60 ml/hr goal rate x 20 hrs/day) which is 122% goal volume. RD reinforced holding feeds with synthroid. See nutrition goals, dx and recs below. Will continue to follow. Dx: Inadequate oral intake r/t vent dependence AEB NPO, need for EN - ACTIVE Intervention: None at this time Monitoring, Evaluation and Goals: 1. EN to provide > 80% goal volume x 24 hrs- MET (pt received 122% goal volume past 24 hrs) 2. Maintain weight status - INCONSISTENT (weights have ranged from 43.5-60.5 kg since admission) 3. Labs WNL - MET 4. Skin WNL - MET No new goals Monitor: per protocol, criteria to determine if above goals continue to be met [facility] Nutrition Therapy DATE: 03/23/17 Patient: KIRSTEN HICKMAN Physician: MIKAYLA Address: [facility] Room/Bed: [address], Zip: [place] [address] Admit Date: 03/11/17 Date of : [birth year] Height: 5 2 Weight: 100 45.5 Recommendations: Continue current enteral nutrition regimen: Jevity 1.5 @ goal rate of 60 ml x 20 hrs/day (HOLD FEEDS 2 HOURS BEFORE AND AFTER SYNTHROID ADMINISTRATION VIA PEG TUBE). MD increased FW flushes to 300 ml q 6 hours. This nutrition regimen is providing 1800 kcals, 77 g protein and 2112 ml free water including flushes. Goal volume: 1200 ml enteral feeds/day. Status: Mild-moderate nutrition risk Respectfully, Yenny Barraza RD, LD Food and Nutritional Services [facility] cc: client file
--- NOTE | ~2017-03-10 | FU ---
[facility] Nutrition Therapy DATE: 03/18/17 Patient: KIRSTEN HICKMAN Physician: MIKAYLA Address: [facility] Room/Bed: [address], Zip: [place] [address] Admit Date: 03/11/17 Date of : [birth year] Height: 5 2 Weight: 104 47.3 NUTRITION MONITORING/FOLLOW-UP: Reason: Enteral nutrition follow up Anthropometrics: Ht: 5'2" Wt: 60.5 kg BMI: 24.4 Wt 47.3 kg Please note change in weight since admission Labs: Na+ 149 K+ 3.3 Gluc 146 Ca++ 2.9 Phos 2.0 Meds: Synthroid (IV currently, may change to PEG), D5%, miralax, pepcid, MgSO4, KCl, NaCl I&O's: 3363/7938, last BM 03/17 (FMS) Skin: no changes noted Edema: BLE 1+ Generalized- trunk Estimated Nutrition Needs: 7756-7818 kcals (25-30 kclas/kg) 72-91 grams protein (1.2-1.5 grams/kg) Assessment: Chart reviewed, events noted. Pt remains intubated in the ICU. Propofol has been discontinued. Ventilator wean trial this AM. For nutrition, the pt is receiving Jevity 1.5 @ 40 mL/hr + 30 ml Prostat daily. Goal rate will change, as the pt is no longer receiving propofol. Pt has received 98% goal volume over the past 24 hrs per pump history. Sodium levels elevated, and MD added 200 cc free H20 QID. Please see recommendations below. Dx: Inadequate protein-energy intake RT malfunctioning PEG, ventilator dependence AEB NPO, intubated- RESOLVING (PEG functioning now) New Dx: Inadequate oral intake RT ventilator dependence AEB NPO status. Intervention: 1. See changes to EN regimen below 2. Free H20 per MD Monitoring, Evaluation and Goals: 1. Enteral nutrition; provide >80% goal volume x 24 hrs- MET/ IN PROGRESS [facility] Nutrition Therapy DATE: 03/18/17 Patient: KIRSTEN HICKMAN Physician: MIKAYLA Address: [facility] Room/Bed: [address], Zip: [place] [address] Admit Date: 03/11/17 Date of : [birth year] Height: 5 2 Weight: 104 47.3 2. Weight; prevent weight loss- UNABLE TO DETERMINE (NEED ACCURATE WEIGHTS) 3. Improve labs, gluc, K+, Ca++ -IN PROGRESS 4. Skin; prevent breakdown- IN PROGRESS CONTINUE TO MONITOR ABOVE GOALS Recommendations: 1. If the pt continues on IV synthroid, discontinue Prostat and increase Jevity 1.5 to 50 mL/hr x 24 hrs to provide: 1800 kcals/ 77 grams protein/ 912 mL free H20 2. If synthroid is administered via PEG, discontinue Prostat and increase Jevity 1.5 to 60 mL/hr x 20 hrs (hold feeds for 2 hrs before and 2 hrs after synthroid) to provide: 1800 kcals/ 77 grams protein/ 912 mL free H20 3. If the pt is extubated, recommend PLANE CAPTAIN eval to determine if the pt can safely tolerate PO intake. Advance diet per PLANE CAPTAIN recommendations as appropriate. Continue enteral nutrition until the pt is consuming 50% of meals or greater. RD will continue to follow and make appropriate recommendations. Status: Pt is at moderate nutritional risk. Respectfully, GLENNA FIORE RD, LD Food and Nutritional Services [facility] cc: client file
--- NOTE | ~2017-03-10 | CR72 ---
[facility] A Service of [facility] RADIOLOGY TEXT RESULTS PATIENT: KIRSTEN HICKMAN LOCATION: [address] : [birth year] UNIT #: [id number] AGE: [address]: Zakiya Aguilar MD SEX: F ORDER DR: [id number] [facility] [address] [place], [place] [address] [id number] I MR#: [id number] Acc #: [id number] NAME: KIRSTEN HICKMAN : 1970 SEX: F STUDY DATE/TIME: 03/18/2017 14:48 UNIT: [facility] ROOM: [facility] STUDY DESCRIPTION: CR Chest Single View Portable Attending Physician: Zakiya Aguilar M.D. Ordering Physician: Physician Non-Staff Primary Care Physician: Radha Emanuel Aprn MEDICAL IMAGING REPORT This report is preliminary unless electronic signature is present EXAM Portable chest HISTORY ETT repositioning. Shortness of air for 1 day. FINDINGS ETT tip is 2 cm above the arpita. Right arm approach PICC tip is in the right atrium 3 cm beyond the junction of the SVC and right atrium. Moderately extensive diffuse bilateral pulmonary infiltrates are similar to earlier today. Dictated by... Kartik Herring M.D. THIS IS AN ELECTRONICALLY VERIFIED REPORT Kartik Herring M.D. at 03/19/2017 10:07 PM DFL/lopez TD: 03/18/2017 18:48 JOB #: [id number] MEDICAL IMAGING REPORT Page 1 of 1 COPY
--- NOTE | ~2017-03-10 | FU ---
[facility] Nutrition Therapy DATE: 03/15/17 Patient: KIRSTEN HICKMAN Physician: MIKAYLA Address: [facility] Room/Bed: [address], Zip: [place] [address] Admit Date: 03/11/17 Date of : 68 Height: 5 2 Weight: 133 60.5 NUTRITION MONITORING/FOLLOW-UP: Reason: Follow up, pt now intubated in the ICU Anthropometrics: Ht: 5'2" Wt: 60.5 kg BMI: 24.4 Labs: K+ 2.6 Gluc 429 Ca++ 7.4 Accuchecks 110-139 Meds: Synthroid (IV), D5%, propofol @ 9.2 ml/hr, miralax, pepcid, vancomycin, MgSO4, KCl, NaCl I&O's: 2949/590, last BM 03/15 Skin: Redness/ blanchable- coccyx Abrasion left wallace Edema: none noted Estimated Nutrition Needs: 8859-1029 kcals (25-30 kcals/kg) 72-91 grams protein (1.2-1.5 grams/kg) 1715-1775 mL fluid or per MD Diet: NPO (pt on vent) Assessment: Chart reviewed, events noted. Pt was sent to ICU and intubated d/t respiratory distress. Pt is receiving 243 kcals from propofol at this time. Malfunctioning PEG tube noted, which is to be replaced today. Enteral nutrition is on hold for that procedure. Per previous RD nutrition assessment from Wednesday, the pt was previous eating a pureed diet + honey thick liquids and received one can bolus of Jeviyt 1.5 if she refuses to eat. RN will provide continuous enteral nutrition recommendations below. Dx: Altered nutrient needs RT clinical condition AEB mechanically altered diet, bolus feeds- NO LONGER RELEVANT (PT ON VENT). New dx: Inadequate protein-energy intake RT malfunctioning PEG tube, ventilator dependence AEB NPO, intubated. Intervention: 1. Enteral nutrition once medically feasible 2. PRODUCTION SUPPORT SUPERVISOR once extubated [facility] Nutrition Therapy DATE: 03/15/17 Patient: KIRSTEN HICKMAN Physician: MIKAYLA Address: [facility] Room/Bed: [address], Zip: [place] [address] Admit Date: 03/11/17 Date of : 68 Height: 5 2 Weight: 133 60.5 Monitoring, Evaluation and Goals: 1. PO INTAKE- NO LONGER RELEVANT 2. Prevent micro and macro nutrient deficiencies- IN PROGRESS 3. Weight; prevent weight loss- IN PROGRESS NEW GOALS: 1. Enteral nutrition; start continuous EN once appropriate, provide >80% goal volume 2. Improve labs; K+, glucose, Ca++ 3. Skin; prevent breakdown Recommendations: 1. Once medically feasible, initiate continuous enteral nutrition with Jevity 1.5 @ 20 mL/hr. Increase by 10 mL q 6 hrs as tolerated to appropriate goal: WHILE THE PT IS RECEIVING PROPOFOL: -Increase Jevity 1.5 to 40 mL/hr x 24 hrs + 30 mL Prostat once daily to provide: 1783 kcals/ 76 grams protein/ 730 mL free H20 IF THE PT IS RECEIVING SYNTHROID VIA PEG WHILE RECEIVING PROPOFOL: Jevity 1.5 @ 50 mL/hr x 20 hrs + 30 mL Prostat once daily WHEN PROPOFOL IS DISCONTINUED: -Discontinue Prostat -Increase Jevity 1.5 to 50 mL/hr x 24 hrs to provide: 1800 kcals/ 77 grams protein/ 912 mL free H20 IF THE PT IS RECEIVING SYNTHROID VIA PEG: -Increase Jevity 1.5 to 60 mL/hr x 20 hrs to provide: 1800 kcals/ 77 grams protein/ 912 mL free H20 2. If the pt is extubated, recommend PRODUCTION SUPPORT SUPERVISOR evaluation to determine if the pt can safely tolerate PO intake. Advance diet per PRODUCTION SUPPORT SUPERVISOR recommendations as appropriate. Continue continuous enteral nutrition until the pt is consuming 50% of meals or greater. 3. Replete electrolytes to WNL PRN (K+ low). Status: Pt is at moderate-severe nutritional risk. RD will follow hospital course per [facility] Nutrition Therapy DATE: 03/15/17 Patient: KIRSTEN HICKMAN Physician: MIKAYLA Address: [facility] Room/Bed: [address], Zip: [place] [address] Admit Date: 03/11/17 Date of : 68 Height: 5 2 Weight: 133 60.5 protocol. Respectfully, GLENNA FIORE RD, LD Food and Nutritional Services [facility] [place] [facility] cc: client file
--- NOTE | ~2017-03-10 | OR ---
Unit #: [id number] #: [id number] Patient: KIRSTEN HICKMAN [id number] [facility]. [place], [place] [address] [id number] I MR#: [id number] NAME: KIRSTEN HICKMAN ROOM: [facility] Date of Procedure: 03/15/2017 Admission Date: 03/11/2017 Surgeon: Valeriy Olivares M.D. : 1970 Attending Physician: Zakiya Aguilar M.D. Primary Care Physician: Radha Emanuel Aprn OPERATIVE REPORT PRIMARY CARE PHYSICIAN Radha Emanuel APRN. PREOPERATIVE DIAGNOSIS The patient has malfunctioning PEG tube. POSTOPERATIVE DIAGNOSES 1. Removal of the PEG tube and replaced with a new 20-Occitan PEG tube. 2. The patient had a long segment of Velasco esophagus. PROCEDURES PERFORMED Upper gastrointestinal endoscopy, removal of the PEG tube and replaced with a new 20-Occitan gastrostomy tube. SEDATION USED The patient was already on a propofol infusion. DESCRIPTION OF PROCEDURE Following detailed explanation of the potential risks and complications of an upper endoscopy, namely perforation, bleeding, and complications related to sedation, the patient was examined in the intensity unit. She was on the ventilator. A bite block was placed. Lubricated tip of the Olympus video upper endoscope was passed through the bite block into the proximal esophagus under direct vision. The entire esophageal mucosa was examined. The patient was noted to have long segment of Velasco esophagus. The scope was then advanced into the gastric cavity and the latter was insufflated. Mucosa of the fundus, body, and antrum was examined and appeared unremarkable. Pylorus was intubated with visualization of the normal duodenal bulb and second and third part of the duodenum. Upon withdrawal and retroflexion; incisura, cardia, and greater curve was examined and no additional findings were noted. The attention was focused on the inner balloon of the PEG tube. This was deflated and the PEG tube was removed completely. Through the matured gastrocutaneous fistula, a large a 20-Occitan PEG tube was then placed and the balloon was inflated and the holding balloon was inflated. The securing device was appropriately adjusted. The scope was withdrawn to the distal esophagus. The entire esophageal mucosa was examined all the way up to pharynx. No additional findings were noted. RECOMMENDATIONS Please use the new PEG tube for feeding and medications as needed. Unit #: [id number] #: [id number] Patient: KIRSTEN HICKMAN Dictated by... Mel Miller/roney TD: 03/16/2017 03:40 JOB #: [id number] OPERATIVE REPORT Page 1 of 1 X Valeriy Olivares MD PROCEDURE OPERATIVE NOTE
--- NOTE | ~2017-03-10 | CR7 ---
[facility] A Service [facility] RADIOLOGY TEXT RESULTS PATIENT: KIRSTEN HICKMAN LOCATION: [facility] : [birth year] UNIT #: [id number] AGE: [address]: Zakiya Aguilar MD SEX: F ORDER DR: [id number] [facility] [address] [place], [place] [address] [id number] MR#: [id number] Acc #: [id number] NAME: KIRSTEN HICKMAN : 1970 SEX: F STUDY DATE/TIME: 03/14/2017 8:19 UNIT: [facility] ROOM: [facility] STUDY DESCRIPTION: CR Abdomen Single AP View Attending Physician: Zakiya Aguilar M.D. Ordering Physician: Zakiya Aguilar M.D. Primary Care Physician: Radha Emanuel Aprn MEDICAL IMAGING REPORT This report is preliminary unless electronic signature is present EXAM Abdominal radiograph. INDICATIONS Abdominal distension today. PROCEDURE Supine view of the abdomen. COMPARISON 03/13/2017 FINDINGS Nonobstructive bowel gas pattern. There are 2 thin linear densities projecting over the left lower quadrant measuring approximately 9 mm in length. These are of uncertain etiology and may be external to the patient. IMPRESSION 1. Nonobstructed bowel gas pattern. 2. Two thin linear radiodensities projecting over the left lower quadrant may be external to the patient. Correlate for any suspicion for ingested foreign body. Dictated by... Ruben Hughes M.D. THIS IS AN ELECTRONICALLY VERIFIED REPORT Ruben Hughes M.D. at 03/16/2017 5:01 PM EED/roxanne TD: 03/14/2017 20:09 [facility] A Service [facility] RADIOLOGY TEXT RESULTS PATIENT: KIRSTEN HICKMAN LOCATION: [facility] : 68 UNIT #: [id number] AGE: [address]: Zakiya Aguilar MD SEX: F ORDER DR: JOB #: [id number] MEDICAL IMAGING REPORT Page 1 of 1 COPY
[2017-03-10 17:23] LABS: BASOPHIL% 0.2 % (0-2.5); HEMATOCRIT 41.6 % (35.0-45.0); HEMOGLOBIN 13.6 gm/dL (12.0-16.0); LYMPHOCYTE# 0.6 X10e3 (1.0-3.5); LYMPHOCYTE% 5.3 % (17.0-45.0); MEAN CELL VOLUME 97.2 FL (83-96); MEAN CORPUSCULAR HEMOGLOBIN 31.6 PG (28-34); MEAN CORPUSCULAR HGB CONC 32.6 g/dL (30-36); MEAN PLATELET VOLUME 7.6 FL (6.5-11.5); MONOCYTE# 0.4 X10e3 (0-1.0); NEUTROPHIL# 9.8 X10e3 (1.5-7.1); NEUTROPHIL% 90.5 % (40-75); PLATELET COUNT 330 X10e3 (140-420); RED BLOOD COUNT 4.29 X10e (3.90-5.30); RED CELL DISTRIBUTION WIDTH 16.2 % (11.0-15.5); WHITE BLOOD COUNT 10.8 X10e3 (4.0-10.5)
[2017-03-10 17:25] LABS: DIFF IND NO
[2017-03-10 17:31] LABS: INR 1.1
[2017-03-10 17:32] LABS: POC - CKMB <1.0 ng/mL (0.0-7.9); POC - TROPONIN <0.05 ng/mL (<=0.05)
[2017-03-10 17:39] LABS: ALBUMIN SERUM 3.1 g/dL (3.5-5.0); BILIRUBIN, DIRECT 0.1 mg/dL (0.0-0.2); BILIRUBIN,INDIRECT 0.7 mg/dL (0.0-0.9); BILIRUBIN,TOTAL 0.8 mg/dL (0.2-2.0); BUN/CREATININE RATIO 13.33; CALCIUM SERUM 8.6 mg/dL (8.4-10.2); CREATININE SERUM 0.9 mg/dL (0.6-1.4); GLOM FILT RATE Estimated 75.7 mL/min (>60); POTASSIUM 3.5 mmol/L (3.5-5.1); PROTEIN TOTAL SERUM 6.8 g/dL (6.0-8.3)
[2017-03-10 17:53] LABS: URINE SOURCE CLEAN CATCH
[2017-03-10] MEDS ORDERED: ACID CONTROLLER20 MG GT (17:53)
[2017-03-10] MEDS ORDERED: XARELTO20 MG GT (17:53)
[2017-03-10] MEDS ORDERED: DONEPEZIL HCL10 MG GT (17:53)
[2017-03-10] MEDS ORDERED: GABAPENTIN300 M2 GT (17:54)
[2017-03-10] MEDS ORDERED: MELATIN3 MG GT (17:54)
[2017-03-10] MEDS ORDERED: BISACODYL10 MG PR (17:54)
[2017-03-10] MEDS ORDERED: MIRALAX17 GM GT (17:54)
[2017-03-10] MEDS ORDERED: LAMICTAL GT (17:55)
[2017-03-10] MEDS ORDERED: SYNTHROID75 MCG GT (17:55)
[2017-03-10] MEDS ORDERED: DIASTAT2.5 MG PR (17:56)
[2017-03-10] MEDS ORDERED: GENAPAP325 MG GT (17:56)
[2017-03-10 18:05] LABS: URINE APPEARANCE CLOUDY; URINE BILIRUBIN NEG (NEG); URINE BLOOD 1+ (NEG); URINE COLOR YELLOW; URINE GLUCOSE NEG (NEG); URINE KETONE 1+ (NEG); URINE LEUKOCYTE ESTERASE 3+ (NEG); URINE NITRATE POS (NEG); URINE PH 5.5 (5-8); URINE PROTEIN TRACE (NEG); URINE SPECIFIC GRAVITY 1.024 (1.003-1.035); URINE UROBILINOGEN 0.2 MG/DL (NEG)
[2017-03-10 18:08] LABS: CULTURE INDICATED? YES; U HYALINE CASTS AUWI 0-2 /[LPF]; URINE BACTERIA AUWI 4+ (NEGATIVE); URINE SQUAMOUS EPITHELIAL CELL NONE SEEN /[HPF]; UWBCS1 AUWI INNUM (0-5)
[2017-03-10 20:02] LABS: POC - CKMB <1.0 ng/mL (0.0-7.9); POC - TROPONIN <0.05 ng/mL (<=0.05)
[2017-03-11 05:13] LABS: HEMATOCRIT 38.7 % (35.0-45.0); HEMOGLOBIN 12.4 gm/dL (12.0-16.0); MEAN CELL VOLUME 97.8 FL (83-96); MEAN CORPUSCULAR HEMOGLOBIN 31.3 PG (28-34); MEAN PLATELET VOLUME 7.6 FL (6.5-11.5); RED BLOOD COUNT 3.96 X10e (3.90-5.30); RED CELL DISTRIBUTION WIDTH 15.8 % (11.0-15.5); WHITE BLOOD COUNT 13.5 X10e3 (4.0-10.5)
[2017-03-11 05:32] LABS: BUN/CREATININE RATIO 12.5; CALCIUM SERUM 8.6 mg/dL (8.4-10.2); CREATININE SERUM 0.8 mg/dL (0.6-1.4); GLOM FILT RATE Estimated 87.3 mL/min (>60); POTASSIUM 3.4 mmol/L (3.5-5.1)
[2017-03-12 06:13] LABS: HEMATOCRIT 45.6 % (35.0-45.0); MEAN CELL VOLUME 100.1 FL (83-96); MEAN CORPUSCULAR HEMOGLOBIN 31.6 PG (28-34); MEAN CORPUSCULAR HGB CONC 31.6 g/dL (30-36); MEAN PLATELET VOLUME 7.6 FL (6.5-11.5); RED BLOOD COUNT 4.56 X10e (3.90-5.30); RED CELL DISTRIBUTION WIDTH 16.4 % (11.0-15.5); WHITE BLOOD COUNT 13.6 X10e3 (4.0-10.5)
[2017-03-12 06:16] LABS: HEMOGLOBIN 14.4 gm/dL (12.0-16.0)
[2017-03-12 06:32] LABS: BUN/CREATININE RATIO 11.42; CALCIUM SERUM 9.3 mg/dL (8.4-10.2); CREATININE SERUM 0.7 mg/dL (0.6-1.4); GLOM FILT RATE Estimated 102.5 mL/min (>60); MAGNESIUM 2.1 mg/dL (1.6-3.0); POTASSIUM 3.5 mmol/L (3.5-5.1)
[2017-03-12 15:44] LABS: URINE SOURCE CATH
[2017-03-12 15:50] LABS: URINE APPEARANCE CLOUDY; URINE BILIRUBIN NEG (NEG); URINE BLOOD TRACE (NEG); URINE COLOR YELLOW; URINE GLUCOSE NEG (NEG); URINE KETONE NEG (NEG); URINE LEUKOCYTE ESTERASE TRACE (NEG); URINE NITRATE NEG (NEG); URINE PROTEIN TRACE (NEG)
[2017-03-12 15:53] LABS: URINE BACTERIA AUWI NEG (NEGATIVE); URINE SQUAMOUS EPITHELIAL CELL MANY /[HPF]
[2017-03-12 21:38] LABS: ARTERIAL BLOOD GAS CARBOXY HB 1.1 %sat (0.0-9.0); ARTERIAL BLOOD GAS HCO3 24.8 mmol/L; ARTERIAL BLOOD GAS MET HB 0.6 %sat (0.0-2.0); ARTERIAL BLOOD GAS PCO2 31.4 mmHg (35.0-45.0); ARTERIAL BLOOD GAS pH 7.507 (7.350-7.450)
[2017-03-12 21:53] LABS: ARTERIAL BLD GAS O2 SATURATION 80.9 % (90.0-100.0); ARTERIAL BLOOD GAS ALLEN TEST NORMAL; ARTERIAL BLOOD GAS ART SITE RIGHT RADIAL; ARTERIAL DRAW? YES
[2017-03-13 06:31] LABS: HEMATOCRIT 37.9 % (35.0-45.0); HEMOGLOBIN 12.8 gm/dL (12.0-16.0); MEAN CORPUSCULAR HEMOGLOBIN 32.4 PG (28-34); MEAN CORPUSCULAR HGB CONC 33.7 g/dL (30-36); MEAN PLATELET VOLUME 7.8 FL (6.5-11.5); RED BLOOD COUNT 3.95 X10e (3.90-5.30); RED CELL DISTRIBUTION WIDTH 16.6 % (11.0-15.5); WHITE BLOOD COUNT 15.3 X10e3 (4.0-10.5)
[2017-03-13 07:01] LABS: CALCIUM SERUM 8.7 mg/dL (8.4-10.2); CREATININE SERUM 0.6 mg/dL (0.6-1.4); GLOM FILT RATE Estimated 107.8 mL/min (>60)
[2017-03-14 03:50] LABS: BASOPHIL% 0.3 % (0-2.5); EOSINOPHIL% 0.1 % (0.0-7.0); HEMOGLOBIN 13.4 gm/dL (12.0-16.0); LYMPHOCYTE# 0.5 X10e3 (1.0-3.5); LYMPHOCYTE% 3.6 % (17.0-45.0); MEAN CELL VOLUME 97.4 FL (83-96); MEAN CORPUSCULAR HEMOGLOBIN 31.9 PG (28-34); MEAN CORPUSCULAR HGB CONC 32.7 g/dL (30-36); MEAN PLATELET VOLUME 8.5 FL (6.5-11.5); MONOCYTE# 0.6 X10e3 (0-1.0); NEUTROPHIL# 12.8 X10e3 (1.5-7.1); PLATELET COUNT 273 X10e3 (140-420); RED BLOOD COUNT 4.21 X10e (3.90-5.30); RED CELL DISTRIBUTION WIDTH 16.7 % (11.0-15.5); WHITE BLOOD COUNT 13.9 X10e3 (4.0-10.5)
[2017-03-14 03:52] LABS: DIFF IND NO
[2017-03-14 04:44] LABS: BUN/CREATININE RATIO 17.5; CALCIUM SERUM 8.8 mg/dL (8.4-10.2); CREATININE SERUM 0.8 mg/dL (0.6-1.4); GLOM FILT RATE Estimated 87.3 mL/min (>60); POTASSIUM 3.4 mmol/L (3.5-5.1)
[2017-03-14 07:42] LABS: ARTERIAL BLD GAS O2 SATURATION 89.6 % (90.0-100.0); ARTERIAL BLOOD GAS CARBOXY HB 0.8 %sat (0.0-9.0); ARTERIAL BLOOD GAS MET HB 0.8 %sat (0.0-2.0); ARTERIAL BLOOD GAS PCO2 40.8 mmHg (35.0-45.0); ARTERIAL BLOOD GAS pH 7.429 (7.350-7.450)
[2017-03-14 07:43] LABS: ARTERIAL BLOOD GAS ART SITE LEFT BRACHIAL; ARTERIAL BLOOD GAS DELIVERY NON REBREATHER MASK; ARTERIAL BLOOD GAS PO2 62.2 mmHg (80.0-100); ARTERIAL DRAW? YES
[2017-03-14 10:41] LABS: ARTERIAL BLD GAS O2 SATURATION 91.3 % (90.0-100.0); ARTERIAL BLOOD GAS CARBOXY HB 1.1 %sat (0.0-9.0); ARTERIAL BLOOD GAS MET HB 0.8 %sat (0.0-2.0); ARTERIAL BLOOD GAS PCO2 42.3 mmHg (35.0-45.0); ARTERIAL BLOOD GAS pH 7.428 (7.350-7.450)
[2017-03-14 10:42] LABS: ARTERIAL BLOOD GAS ALLEN TEST NORMAL; ARTERIAL BLOOD GAS ART SITE RIGHT RADIAL; ARTERIAL BLOOD GAS DELIVERY VENT; ARTERIAL BLOOD GAS PO2 66.3 mmHg (80.0-100); ARTERIAL BLOOD GAS VENT MODE AC; ARTERIAL DRAW? YES
[2017-03-14 17:25] LABS: CK TOTAL 22 IU/L (26-140)
[2017-03-14 23:19] LABS: CK TOTAL 18 IU/L (26-140)
[2017-03-15 04:12] LABS: ARTERIAL BLD GAS O2 SATURATION 92.3 % (90.0-100.0); ARTERIAL BLOOD GAS CARBOXY HB 0.9 %sat (0.0-9.0); ARTERIAL BLOOD GAS HCO3 28.6 mmol/L; ARTERIAL BLOOD GAS MET HB 0.6 %sat (0.0-2.0); ARTERIAL BLOOD GAS PCO2 43.9 mmHg (35.0-45.0); ARTERIAL BLOOD GAS pH 7.423 (7.350-7.450)
[2017-03-15 04:13] LABS: ARTERIAL BLOOD GAS PO2 64.4 mmHg (80.0-100); ARTERIAL DRAW? YES
[2017-03-15 04:14] LABS: ARTERIAL BLOOD GAS ALLEN TEST NORMAL; ARTERIAL BLOOD GAS ART SITE LEFT BRACHIAL; ARTERIAL BLOOD GAS DELIVERY VENT; ARTERIAL BLOOD GAS VENT MODE AC
[2017-03-15 05:10] LABS: BASOPHIL% 0.1 % (0-2.5); EOSINOPHIL% 0.1 % (0.0-7.0); HEMATOCRIT 32.5 % (35.0-45.0); LYMPHOCYTE# 0.9 X10e3 (1.0-3.5); LYMPHOCYTE% 7.3 % (17.0-45.0); MEAN CELL VOLUME 97.5 FL (83-96); MEAN CORPUSCULAR HEMOGLOBIN 32.2 PG (28-34); MEAN PLATELET VOLUME 8.9 FL (6.5-11.5); MONOCYTE# 0.6 X10e3 (0-1.0); MONOCYTE% 4.4 % (3.0-12.0); NEUTROPHIL# 11.2 X10e3 (1.5-7.1); NEUTROPHIL% 88.1 % (40-75); PLATELET COUNT 286 X10e3 (140-420); RED BLOOD COUNT 3.34 X10e (3.90-5.30); RED CELL DISTRIBUTION WIDTH 16.4 % (11.0-15.5); WHITE BLOOD COUNT 12.7 X10e3 (4.0-10.5)
[2017-03-15 05:16] LABS: DIFF IND NO; HEMOGLOBIN 10.7 gm/dL (12.0-16.0)
[2017-03-15 06:20] LABS: BUN/CREATININE RATIO 17.14; CALCIUM SERUM 7.4 mg/dL (8.4-10.2); CREATININE SERUM 0.7 mg/dL (0.6-1.4); GLOM FILT RATE Estimated 102.5 mL/min (>60); MAGNESIUM 1.6 mg/dL (1.6-3.0)
[2017-03-15 06:22] LABS: POTASSIUM 2.6 mmol/L (3.5-5.1)
[2017-03-16 04:34] LABS: ARTERIAL BLD GAS O2 SATURATION 95.2 % (90.0-100.0); ARTERIAL BLOOD GAS CARBOXY HB 0.9 %sat (0.0-9.0); ARTERIAL BLOOD GAS HCO3 28.5 mmol/L; ARTERIAL BLOOD GAS MET HB 0.6 %sat (0.0-2.0); ARTERIAL BLOOD GAS PCO2 42.8 mmHg (35.0-45.0); ARTERIAL BLOOD GAS PO2 82.3 mmHg (80.0-100); ARTERIAL BLOOD GAS pH 7.432 (7.350-7.450)
[2017-03-16 04:41] LABS: ARTERIAL BLOOD GAS ALLEN TEST NORMAL; ARTERIAL BLOOD GAS ART SITE LEFT BRACHIAL; ARTERIAL BLOOD GAS DELIVERY VENT; ARTERIAL BLOOD GAS VENT MODE AC; ARTERIAL DRAW? YES
[2017-03-16 06:35] LABS: CALCIUM SERUM 7.7 mg/dL (8.4-10.2); CREATININE SERUM 0.6 mg/dL (0.6-1.4); GLOM FILT RATE Estimated 107.8 mL/min (>60); MAGNESIUM 1.8 mg/dL (1.6-3.0); POTASSIUM 3.3 mmol/L (3.5-5.1)
[2017-03-17 03:43] LABS: BASOPHIL# 0.1 X10e3 (0-0.3); BASOPHIL% 0.6 % (0-2.5); EOSINOPHIL# 0.2 X10e3 (0-0.7); EOSINOPHIL% 1.4 % (0.0-7.0); HEMOGLOBIN 10.7 gm/dL (12.0-16.0); LYMPHOCYTE# 1.2 X10e3 (1.0-3.5); LYMPHOCYTE% 10.7 % (17.0-45.0); MEAN CELL VOLUME 97.1 FL (83-96); MEAN CORPUSCULAR HEMOGLOBIN 31.4 PG (28-34); MEAN CORPUSCULAR HGB CONC 32.3 g/dL (30-36); MEAN PLATELET VOLUME 8.7 FL (6.5-11.5); MONOCYTE# 0.7 X10e3 (0-1.0); MONOCYTE% 6.4 % (3.0-12.0); NEUTROPHIL% 80.9 % (40-75); PLATELET COUNT 197 X10e3 (140-420); RED BLOOD COUNT 3.39 X10e (3.90-5.30); RED CELL DISTRIBUTION WIDTH 16.4 % (11.0-15.5); WHITE BLOOD COUNT 11.1 X10e3 (4.0-10.5)
[2017-03-17 03:51] LABS: DIFF IND NO
[2017-03-17 04:10] LABS: BUN/CREATININE RATIO 11.66; CALCIUM SERUM 7.6 mg/dL (8.4-10.2); CREATININE SERUM 0.6 mg/dL (0.6-1.4); GLOM FILT RATE Estimated 107.8 mL/min (>60); MAGNESIUM 2.1 mg/dL (1.6-3.0); POTASSIUM 4.2 mmol/L (3.5-5.1)
[2017-03-17 08:56] LABS: ARTERIAL BLD GAS O2 SATURATION 95.2 % (90.0-100.0); ARTERIAL BLOOD GAS CARBOXY HB 0.9 %sat (0.0-9.0); ARTERIAL BLOOD GAS HCO3 31.1 mmol/L; ARTERIAL BLOOD GAS MET HB 0.7 %sat (0.0-2.0); ARTERIAL BLOOD GAS PCO2 46.8 mmHg (35.0-45.0); ARTERIAL BLOOD GAS PO2 80.8 mmHg (80.0-100); ARTERIAL DRAW? YES
[2017-03-17 08:57] LABS: ARTERIAL BLOOD GAS ALLEN TEST NORMAL; ARTERIAL BLOOD GAS ART SITE LEFT RADIAL; ARTERIAL BLOOD GAS DELIVERY VENT; ARTERIAL BLOOD GAS VENT MODE AC
[2017-03-18 03:59] LABS: BASOPHIL# 0.1 X10e3 (0-0.3); BASOPHIL% 0.9 % (0-2.5); EOSINOPHIL# 0.1 X10e3 (0-0.7); EOSINOPHIL% 1.5 % (0.0-7.0); HEMATOCRIT 32.1 % (35.0-45.0); HEMOGLOBIN 10.6 gm/dL (12.0-16.0); LYMPHOCYTE# 1.3 X10e3 (1.0-3.5); LYMPHOCYTE% 15.8 % (17.0-45.0); MEAN CELL VOLUME 96.1 FL (83-96); MEAN CORPUSCULAR HEMOGLOBIN 31.7 PG (28-34); MEAN PLATELET VOLUME 8.9 FL (6.5-11.5); MONOCYTE# 0.5 X10e3 (0-1.0); MONOCYTE% 6.7 % (3.0-12.0); NEUTROPHIL# 6.1 X10e3 (1.5-7.1); NEUTROPHIL% 75.1 % (40-75); PLATELET COUNT 194 X10e3 (140-420); RED BLOOD COUNT 3.34 X10e (3.90-5.30); RED CELL DISTRIBUTION WIDTH 16.3 % (11.0-15.5); WHITE BLOOD COUNT 8.2 X10e3 (4.0-10.5)
[2017-03-18 04:00] LABS: DIFF IND NO
[2017-03-18 04:22] LABS: CALCIUM SERUM 7.9 mg/dL (8.4-10.2); CREATININE SERUM 0.8 mg/dL (0.6-1.4); GLOM FILT RATE Estimated 87.3 mL/min (>60); MAGNESIUM 2.1 mg/dL (1.6-3.0); POTASSIUM 3.3 mmol/L (3.5-5.1)
[2017-03-18 09:19] LABS: ARTERIAL BLD GAS O2 SATURATION 97.3 % (90.0-100.0); ARTERIAL BLOOD GAS CARBOXY HB 0.9 %sat (0.0-9.0); ARTERIAL BLOOD GAS HCO3 39.5 mmol/L; ARTERIAL BLOOD GAS MET HB 0.6 %sat (0.0-2.0); ARTERIAL BLOOD GAS pH 7.453 (7.350-7.450)
[2017-03-18 09:20] LABS: ARTERIAL BLOOD GAS ALLEN TEST NORMAL; ARTERIAL BLOOD GAS ART SITE LEFT RADIAL; ARTERIAL BLOOD GAS DELIVERY VENT; ARTERIAL BLOOD GAS PCO2 56.5 mmHg (35.0-45.0); ARTERIAL BLOOD GAS VENT MODE CPAP; ARTERIAL DRAW? YES
[2017-03-18 14:18] LABS: ARTERIAL BLOOD GAS CARBOXY HB 0.5 %sat (0.0-9.0); ARTERIAL BLOOD GAS HCO3 38.5 mmol/L; ARTERIAL BLOOD GAS MET HB 0.7 %sat (0.0-2.0); ARTERIAL BLOOD GAS PCO2 47.4 mmHg (35.0-45.0); ARTERIAL BLOOD GAS pH 7.518 (7.350-7.450)
[2017-03-18 14:20] LABS: ARTERIAL BLOOD GAS ALLEN TEST NORMAL; ARTERIAL BLOOD GAS ART SITE RIGHT RADIAL; ARTERIAL BLOOD GAS DELIVERY VENT; ARTERIAL BLOOD GAS VENT MODE A/C; ARTERIAL DRAW? YES
[2017-03-19 04:13] LABS: ARTERIAL BLD GAS O2 SATURATION 98.3 % (90.0-100.0); ARTERIAL BLOOD GAS CARBOXY HB 0.8 %sat (0.0-9.0); ARTERIAL BLOOD GAS HCO3 35.9 mmol/L; ARTERIAL BLOOD GAS MET HB 0.6 %sat (0.0-2.0); ARTERIAL BLOOD GAS PCO2 41.8 mmHg (35.0-45.0); ARTERIAL BLOOD GAS pH 7.543 (7.350-7.450)
[2017-03-19 04:14] LABS: ARTERIAL BLOOD GAS ART SITE LEFT BRACHIAL; ARTERIAL BLOOD GAS DELIVERY VENT; ARTERIAL BLOOD GAS VENT MODE AC; ARTERIAL DRAW? YES
[2017-03-19 05:43] LABS: BASOPHIL% 0.3 % (0-2.5); EOSINOPHIL# 0.1 X10e3 (0-0.7); HEMATOCRIT 28.4 % (35.0-45.0); HEMOGLOBIN 9.6 gm/dL (12.0-16.0); LYMPHOCYTE# 1.5 X10e3 (1.0-3.5); LYMPHOCYTE% 19.8 % (17.0-45.0); MEAN CELL VOLUME 95.2 FL (83-96); MEAN CORPUSCULAR HEMOGLOBIN 32.1 PG (28-34); MEAN CORPUSCULAR HGB CONC 33.7 g/dL (30-36); MEAN PLATELET VOLUME 9.3 FL (6.5-11.5); MONOCYTE# 0.9 X10e3 (0-1.0); MONOCYTE% 12.2 % (3.0-12.0); NEUTROPHIL# 5.2 X10e3 (1.5-7.1); NEUTROPHIL% 66.7 % (40-75); PLATELET COUNT 199 X10e3 (140-420); RED BLOOD COUNT 2.98 X10e (3.90-5.30); RED CELL DISTRIBUTION WIDTH 16.7 % (11.0-15.5); WHITE BLOOD COUNT 7.7 X10e3 (4.0-10.5)
[2017-03-19 05:55] LABS: DIFF IND NO
[2017-03-19 06:14] LABS: BUN/CREATININE RATIO 16.25; CALCIUM SERUM 7.7 mg/dL (8.4-10.2); CREATININE SERUM 0.8 mg/dL (0.6-1.4); GLOM FILT RATE Estimated 87.3 mL/min (>60); MAGNESIUM 2.2 mg/dL (1.6-3.0); PHOSPHOROUS 3.2 mg/dL (2.5-4.6); POTASSIUM 3.8 mmol/L (3.5-5.1)
[2017-03-20 03:58] LABS: ARTERIAL BLD GAS O2 SATURATION 98.6 % (90.0-100.0); ARTERIAL BLOOD GAS CARBOXY HB 0.7 %sat (0.0-9.0); ARTERIAL BLOOD GAS HCO3 30.4 mmol/L; ARTERIAL BLOOD GAS MET HB 0.7 %sat (0.0-2.0); ARTERIAL BLOOD GAS PCO2 42.5 mmHg (35.0-45.0); ARTERIAL BLOOD GAS pH 7.464 (7.350-7.450)
[2017-03-20 04:02] LABS: ARTERIAL BLOOD GAS ART SITE LEFT BRACHIAL; ARTERIAL BLOOD GAS DELIVERY VENT; ARTERIAL DRAW? YES
[2017-03-20 04:03] LABS: ARTERIAL BLOOD GAS VENT MODE A/C
[2017-03-20 05:13] LABS: BASOPHIL% 0.2 % (0-2.5); HEMATOCRIT 29.6 % (35.0-45.0); HEMOGLOBIN 9.6 gm/dL (12.0-16.0); LYMPHOCYTE# 0.8 X10e3 (1.0-3.5); LYMPHOCYTE% 9.8 % (17.0-45.0); MEAN CELL VOLUME 96.5 FL (83-96); MEAN CORPUSCULAR HEMOGLOBIN 31.4 PG (28-34); MEAN CORPUSCULAR HGB CONC 32.6 g/dL (30-36); MEAN PLATELET VOLUME 9.8 FL (6.5-11.5); MONOCYTE# 0.2 X10e3 (0-1.0); MONOCYTE% 3.1 % (3.0-12.0); NEUTROPHIL% 86.9 % (40-75); PLATELET COUNT 247 X10e3 (140-420); RED BLOOD COUNT 3.07 X10e (3.90-5.30); RED CELL DISTRIBUTION WIDTH 16.5 % (11.0-15.5); WHITE BLOOD COUNT 8.1 X10e3 (4.0-10.5)
[2017-03-20 05:51] LABS: DIFF IND NO
[2017-03-20 06:35] LABS: ALBUMIN SERUM 1.7 g/dL (3.5-5.0); BILIRUBIN,TOTAL 0.4 mg/dL (0.2-2.0); BUN/CREATININE RATIO 15.55; CALCIUM SERUM 7.9 mg/dL (8.4-10.2); CREATININE SERUM 0.9 mg/dL (0.6-1.4); GLOM FILT RATE Estimated 75.7 mL/min (>60); MAGNESIUM 2.4 mg/dL (1.6-3.0); POTASSIUM 3.2 mmol/L (3.5-5.1); PROTEIN TOTAL SERUM 5.9 g/dL (6.0-8.3)
[2017-03-21 05:05] LABS: BASOPHIL% 0.1 % (0-2.5); HEMATOCRIT 28.2 % (35.0-45.0); HEMOGLOBIN 9.5 gm/dL (12.0-16.0); LYMPHOCYTE% 12.6 % (17.0-45.0); MEAN CELL VOLUME 96.2 FL (83-96); MEAN CORPUSCULAR HEMOGLOBIN 32.3 PG (28-34); MEAN CORPUSCULAR HGB CONC 33.6 g/dL (30-36); MEAN PLATELET VOLUME 9.2 FL (6.5-11.5); MONOCYTE# 0.6 X10e3 (0-1.0); NEUTROPHIL# 6.4 X10e3 (1.5-7.1); NEUTROPHIL% 79.3 % (40-75); PLATELET COUNT 241 X10e3 (140-420); RED BLOOD COUNT 2.93 X10e (3.90-5.30); RED CELL DISTRIBUTION WIDTH 15.9 % (11.0-15.5); WHITE BLOOD COUNT 8.1 X10e3 (4.0-10.5)
[2017-03-21 05:08] LABS: DIFF IND NO
[2017-03-21 06:40] LABS: BUN/CREATININE RATIO 22.5; CALCIUM SERUM 8.1 mg/dL (8.4-10.2); CREATININE SERUM 0.8 mg/dL (0.6-1.4); GLOM FILT RATE Estimated 87.3 mL/min (>60); MAGNESIUM 2.5 mg/dL (1.6-3.0); PHOSPHOROUS 2.7 mg/dL (2.5-4.6); POTASSIUM 3.5 mmol/L (3.5-5.1)
[2017-03-21 12:13] LABS: ARTERIAL BLD GAS O2 SATURATION 98.2 % (90.0-100.0); ARTERIAL BLOOD GAS CARBOXY HB 0.7 %sat (0.0-9.0); ARTERIAL BLOOD GAS HCO3 30.2 mmol/L; ARTERIAL BLOOD GAS MET HB 1.2 %sat (0.0-2.0); ARTERIAL BLOOD GAS PCO2 40.3 mmHg (35.0-45.0); ARTERIAL BLOOD GAS pH 7.482 (7.350-7.450)
[2017-03-21 12:15] LABS: ARTERIAL BLOOD GAS ART SITE RIGHT BRACHIAL; ARTERIAL BLOOD GAS DELIVERY VENTILATOR; ARTERIAL BLOOD GAS VENT MODE CPAP; ARTERIAL DRAW? YES
[2017-03-22 05:31] LABS: BUN/CREATININE RATIO 27.14; CALCIUM SERUM 8.2 mg/dL (8.4-10.2); CREATININE SERUM 0.7 mg/dL (0.6-1.4); GLOM FILT RATE Estimated 102.5 mL/min (>60); MAGNESIUM 2.2 mg/dL (1.6-3.0)
[2017-03-24 06:05] LABS: BASOPHIL% 0.2 % (0-2.5); DIFF IND YES; EOSINOPHIL% 0.1 % (0.0-7.0); HEMATOCRIT 30.3 % (35.0-45.0); HEMOGLOBIN 10.1 gm/dL (12.0-16.0); LYMPHOCYTE% 9.7 % (17.0-45.0); MEAN CELL VOLUME 96.5 FL (83-96); MEAN CORPUSCULAR HGB CONC 33.2 g/dL (30-36); MEAN PLATELET VOLUME 9.2 FL (6.5-11.5); MONOCYTE# 0.7 X10e3 (0-1.0); MONOCYTE% 6.8 % (3.0-12.0); NEUTROPHIL# 8.3 X10e3 (1.5-7.1); NEUTROPHIL% 83.2 % (40-75); PLATELET COUNT 334 X10e3 (140-420); RED BLOOD COUNT 3.14 X10e (3.90-5.30); RED CELL DISTRIBUTION WIDTH 15.7 % (11.0-15.5)
[2017-03-24 06:20] LABS: ANISOCYTOSIS SL; PLATELET ESTIMATE NORMAL (NORMAL)
== END 2017-03-25 11:32 | DRG 207 ==
LOC: CED 16:19 → CEDOF 18:40 → CED 18:40 → C5B 18:40 → CEDOF 22:37 → C5B 22:37 → CEDOF 03-11 18:04 → CICCU3 03-14 07:48 → C5C 03-23 19:49
PROVIDERS: Emergency Medicine; Hospitalist; Internal Medicine; Internal Medicine Gastroenterology; Internal Medicine Infectious Disease; Physician Assistant Medical
PROC: 05H633Z Insertion of Infusion Device into Left Subclavian Vein, Percutaneous Approach (ICD-10-PCS; 2017-03-11)
PROC: B547ZZA Ultrasonography of Left Subclavian Vein, Guidance (ICD-10-PCS; 2017-03-11)
PROC: 05H533Z Insertion of Infusion Device into Right Subclavian Vein, Percutaneous Approach (ICD-10-PCS; 2017-03-13)
PROC: B546ZZA Ultrasonography of Right Subclavian Vein, Guidance (ICD-10-PCS; 2017-03-13)
PROC: 5A1955Z Respiratory Ventilation, Greater than 96 Consecutive Hours (ICD-10-PCS; 2017-03-14)
PROC: 0BH17EZ Insertion of Endotracheal Airway into Trachea, Via Natural or Artificial Opening (ICD-10-PCS; 2017-03-14)
PROC: 02HV33Z Insertion of Infusion Device into Superior Vena Cava, Percutaneous Approach (ICD-10-PCS; 2017-03-14)
PROC: 4A02X4A Measurement of Cardiac Electrical Activity, Guidance, External Approach (ICD-10-PCS; 2017-03-14)
PROC: B24BYZZ Ultrasonography of Heart with Aorta using Other Contrast (ICD-10-PCS; 2017-03-14)
PROC: 0DJ08ZZ Inspection of Upper Intestinal Tract, Via Natural or Artificial Opening Endoscopic (ICD-10-PCS; 2017-03-15)
PROC: 0D20XUZ Change Feeding Device in Upper Intestinal Tract, External Approach (ICD-10-PCS; principal; 2017-03-15 11:22)
PROC: 0BH17EZ Insertion of Endotracheal Airway into Trachea, Via Natural or Artificial Opening (ICD-10-PCS; 2017-03-18)
PROC: 5A1945Z Respiratory Ventilation, 24-96 Consecutive Hours (ICD-10-PCS; 2017-03-18)
DX: J69.0 Pneumonitis due to inhalation of food and vomit (principal); R65.21 Severe sepsis with septic shock; A41.9 Sepsis, unspecified organism; N39.0 Urinary tract infection, site not specified; B96.20 Unspecified Escherichia coli [E. coli] as the cause of diseases classified elsewhere; J96.01 Acute respiratory failure with hypoxia; E11.9 Type 2 diabetes mellitus without complications; K94.23 Gastrostomy malfunction; E87.0 Hyperosmolality and hypernatremia; G40.909 Epilepsy, unspecified, not intractable, without status epilepticus; Z86.718 Personal history of other venous thrombosis and embolism; F79 Unspecified intellectual disabilities; Q90.9 Down syndrome, unspecified; F03.90 Unspecified dementia, unspecified severity, without behavioral disturbance, psychotic disturbance, mood disturbance, and anxiety; F41.9 Anxiety disorder, unspecified; E03.9 Hypothyroidism, unspecified; K21.9 Gastro-esophageal reflux disease without esophagitis; M62.3 Immobility syndrome (paraplegic); Z86.711 Personal history of pulmonary embolism; K22.70 Barrett's esophagus without dysplasia; E87.6 Hypokalemia; Z66 Do not resuscitate
CPT/HCPCS: 36415; 36600; 51701; 71010; 74000; 74230; 80048; 80053; 80076; 80200; 80202; 81003; 82150; 82308; 82533; 82550; 82553; 82803; 82947; 83605; 83690; 83735; 83880; 84100; 84132; 84484; 85025; 85027; 85610; 85730; 87040; 87045; 87070; 87086; 87088; 87186; 87205; 87427; 87449; 87493; 87899; 92611; 93005; 93306; 93970; 94002; 94003; 94640; 94760; 94761; 96360; 99291; J0330; J1120; J1630; J1650; J1720; J1940; J1953; J2250; J2405; J2543; J3010; J3260; J3370; J3475

== ENCOUNTER → 2017-04-15 | Outpatient (CLI) | payer MEDICARE, OTHER | END | disposition home or self-care (01) | LOC: CRAD 09:34 | DX: R13.10 Dysphagia, unspecified (principal) | CPT/HCPCS: 74230; 92611; G8996-GN; G8997-GN; G8998-GN ==